=== PATIENT | female | born 1975 | race Caucasian/White ===

== ENCOUNTER 2024-06-26 09:37 | Outpatient (AMB) | payer OTHER, SELFPAY ==
[2024-06-26 09:44] VITALS: BP 110/62; PULSE 71; O2SAT 97; BMI 30.9
--- NOTE | 2024-06-26 09:44 | MHC.OFFVIS ---
Vital Signs 06/26/24 09:44 Height 5 ft 9 in Weight 209 lb BMI 30.9 BP 110/62 Blood Pressure Location Lt brachial Position Sitting Pulse 71 Pulse Source Pulse Oximeter Pulse Oximetry (%) 97 Oxygen Delivery Method Room Air Intake Visit Reasons: [facility] Intake Note: Patient presents for osteoarthritis all over body, hips, neck, and knees. HPI HPI Arthritis: Details: R hand PIPs were stiff end of summer with swelling noted in March. Hard to take rings off. Taking celebrex 200mg but sometimes misses evening dose half of the time. Tylenol arthritis helps. Whole body stiffness and pain. [facility] Medical History (Updated 06/26/24 @ 10:36 by Wilner Ferguson MD) Anxiety ADD (attention deficit disorder) Osteoarthritis Surgical History (Updated 06/26/24 @ 09:53 by Alycia Rosales CMA) History of cholecystectomy Family History (Updated 06/26/24 @ 09:54 by Alycia Rosales CMA) Father Lung cancer Social History (Updated 06/26/24 @ 09:56 by Alycia Rosales CMA) Alcohol intake: current Alcohol intake frequency: 0-2 drinks per day Alcohol type: wine Patient Tobacco Use Status: Former Tobacco user Years Smoked: 1 Substance Use Type: Marijuana Review of Systems Const All systems reviewed & are unremarkable except as noted in HPI and below Physical Exam Vital Signs: Last Vital Signs Pulse 71 06/26/24 09:44 BP 110/62 06/26/24 09:44 Pulse Ox 97 06/26/24 09:44 Oxygen Delivery Method Room Air 06/26/24 09:44 BMI result Body Mass Index 30.9 Const Other: General: Comfortable CVS: RRR Respiratory: clear to auscultation bilaterally. Good respiratory effort Skin: No lesions seen MSK: Nontender to palpate small joints in hands. No synovitis present. Good range of motion of upper extremities and lower extremities. She has good range of motion of her cervical spine. Limited full lumbar flexion at 1st but with time she is able to flexor spine with full flexion. Assessment & Plan Assessment & Plan (1) Chronic back pain: Comment: With inflammatory features of stiffness due to degenerative joint disease of lumbar spine with paraspinal muscle strain contributing. She has found more relief on Celebrex compared to meloxicam. She also uses baclofen 5 mg q.h.s. with benefit. She had a session with PT but it was not effective. I will order physical therapy at [facility]. She developed a recent episode of hand stiffness and swelling. Swelling is intermittent. No synovitis on exam. I will workup for inflammatory arthritis with x-rays and labs [facility] she has had workup for axial inflammatory arthritis with workup revealing positive HLA B27 antibody, no x-ray imaging findings of axial inflammatory arthritis with normal inflammatory markers. Medical records reviewed from [facility]. Code(s): M54.9 - Dorsalgia, unspecified; G89.29 - Other chronic pain Category: Medical Qualifiers: Back pain laterality: unspecified Back pain location: low back pain Sciatica presence: without sciatica Qualified Code(s): M54.50 - Low back pain, unspecified; G89.29 - Other chronic pain Plan: Physical therapy ordered MRI pelvis without contrast ordered to evaluate for inflammatory sacroiliitis Continue Celebrex 200 mg twice a day Labs for drug monitoring chronic NSAID ordered and for workup for inflammatory arthritis Continue baclofen 5 mg q.h.s. p.r.n. 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 (nsaid): Code(s): Z79.1 - extermination supervisor (current) use of non-steroidal anti-inflammatories (NSAID) Category: Medical Plan: See above (3) Hand pain: Code(s): M79.643 - Pain in unspecified hand Category: Medical Qualifiers: Laterality: bilateral Qualified Code(s): M79.641 - Pain in right hand; M79.642 - Pain in left hand Plan: See above (4) Lumbar spondylosis: Code(s): M47.816 - Spondylosis without myelopathy or radiculopathy, lumbar region Category: Medical Plan: See above (5) Strain of lumbar paraspinal muscle: Code(s): S39.012A - Strain of muscle, fascia and tendon of lower back, initial encounter Category: Medical Qualifiers: Encounter type: subsequent encounter Qualified Code(s): S39.012D - Strain of muscle, fascia and tendon of lower back, subsequent encounter Plan: See above Orders: Orders XR hand LT min 3V Today M79.643 - Pain in unspecified hand Aspartate Amino Transferase Today Z79.60 - [facility] (current) use of unspecified immunomodulators and immunosuppressants Creatinine Today Z79.60 - extermination supervisor (current) use of unspecified immunomodulators and immunosuppressants C Reactive Protein Today M79.643 - Pain in unspecified hand Erythrocyte Sedimentation Rate Today M79.643 - Pain in unspecified hand Cyclic Citrullinated Peptide Today M79.643 - Pain in unspecified hand MR pelvis wo con Today G89.29 - Other chronic pain, M54.50 - Low back pain, unspecified XR cervical spine 3V Today G89.29 - Other chronic pain, M54.9 - Dorsalgia, unspecified, M79.643 - Pain in unspecified hand, Z79.1 - extermination supervisor (current) use of non-steroidal anti-inflammatories (NSAID) XR hand RT min 3V Today M79.643 - Pain in unspecified hand Alanine Aminotransferase Today Z79.60 - extermination supervisor (current) use of unspecified immunomodulators and immunosuppressants Rheumatoid Factor Today M79.643 - Pain in unspecified hand Referrals Physical Medicine and Rehabilitation Referral M47.816 - Spondylosis without myelopathy or radiculopathy, lumbar region, S39.012A - Strain of muscle, fascia and tendon of lower back, initial encounter Medications: New baclofen 5 mg PO DAILY 30 tabs 1RF Coding Level of Care Code Est Pt Level 4 (81141) Complex EM visit Add On G2211 Diagnoses Chronic low back pain without sciatica, unspecified back pain laterality M54.50; G89.29 Back pain laterality: unspecified Back pain location: low back pain Sciatica presence: without sciatica [facility] (current) use of non-steroidal anti-inflammatories (nsaid) Z79.1 Pain in both hands M79.641; M79.642 Laterality: bilateral Lumbar spondylosis M47.816 Strain of lumbar paraspinous muscle, subsequent encounter S39.012D Encounter type: subsequent encounter
== END 2024-06-26 10:30 | disposition home or self-care (01) ==
PROVIDERS: PCP Physician Assistant Medical; Visit Provider Internal Medicine Rheumatology
DX: M54.50 Low back pain, unspecified (principal); G89.29 Other chronic pain; Z79.1 Long term (current) use of non-steroidal anti-inflammatories (NSAID); M79.641 Pain in right hand; M79.642 Pain in left hand; M47.816 Spondylosis without myelopathy or radiculopathy, lumbar region; S39.012D Strain of muscle, fascia and tendon of lower back, subsequent encounter
CPT/HCPCS: 99214

== ENCOUNTER 2024-09-03 11:21 | Outpatient (REF) | payer OTHER, SELFPAY ==
[2024-09-03 12:37] LABS: Alanine Aminotransferase 20 U/L (0-31); Aspartate Amino Transferase 23 U/L (5-31); C Reactive Protein < 0.10 mg/dL (< or = 0.50); Estimated Glomerular Filt Rate > 60
[2024-09-03 12:53] LABS: Rheumatoid Factor < 13.0 IU/mL (<15.0)
[2024-09-03 12:57] LABS: Erythrocyte Sedimentation Rate 1 MM/HR (0-20)
[2024-09-08 19:19] LABS: Cyclic Citrullinated Peptide <16 UNITS
== END 2024-09-03 11:22 | disposition home or self-care (01) ==
LOC: HO.LAB 11:21
PROVIDERS: PCP Physician Assistant Medical; Visit Provider Internal Medicine Rheumatology
DX: M79.643 Pain in unspecified hand (principal); Z79.60 Long term (current) use of unspecified immunomodulators and immunosuppressants
CPT/HCPCS: 36415; 82565; 84450; 84460; 85652; 86140; 86200; 86431

== ENCOUNTER 2024-09-08 10:48 | Outpatient (REF) | payer OTHER, SELFPAY ==
--- NOTE | ~2024-09-08 | XR_ITS ---
CLINICAL HISTORY: M79.643 - Pain in unspecified hand 3 view left hand Comparison: None Findings: No fractures or dislocations. There are minimal osteophytes. Preserved joint spaces No erosions. No radiopaque foreign body. IMPRESSION: 1. No acute findings This document has been electronically signed by: Doroteo Mayo MD on 09/09/2024 08:55:33
--- NOTE | ~2024-09-08 | XR_ITS ---
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 4 views cervical spine Comparison: None Findings: There are no acute fractures. There is disc space narrowing at C5-C6 and mild disc space narrowing at C6-C7. There osteophytes most significant at C5-C6 with smaller osteophytes at C6-C7. There is 2 mm posterior listhesis C5 on C6. No soft tissue lesions There is slight kyphosis at C5-C6 secondary to the degenerative changes. IMPRESSION: Multilevel spondylosis most significant at C5-C6 and C6-C7 as above This document has been electronically signed by: Doroteo Mayo MD on 09/09/2024 09:03:29
--- NOTE | ~2024-09-08 | XR_ITS ---
CLINICAL HISTORY: M79.643 - Pain in unspecified hand 3 view right hand Comparison: None Findings: No fractures or dislocations. No significant loss of joint space. No erosions. No radiopaque foreign body. There are small osteophytes. IMPRESSION: Mild osteoarthrosis This document has been electronically signed by: Doroteo Mayo MD on 09/09/2024 08:55:27
== END 2024-09-08 10:49 | disposition home or self-care (01) ==
LOC: HO.XRAY 10:48
PROVIDERS: PCP Physician Assistant Medical; Visit Provider Internal Medicine Rheumatology
DX: M54.9 Dorsalgia, unspecified (principal); G89.29 Other chronic pain; M79.643 Pain in unspecified hand; Z79.1 Long term (current) use of non-steroidal anti-inflammatories (NSAID)
CPT/HCPCS: 72040; 73130

== ENCOUNTER → 2024-09-08 10:52 | Outpatient (BNV) | payer OTHER, SELFPAY | PROVIDERS: PCP Physician Assistant Medical; Visit Provider Radiology Diagnostic Radiology | DX: M79.641 Pain in right hand (principal); M79.642 Pain in left hand | CPT/HCPCS: 72040; 73130 ==

== ENCOUNTER 2024-09-25 09:48 | Outpatient (REF) | payer OTHER, SELFPAY ==
[2024-09-25 17:33] LABS: MANUAL DIFF FLAG NO
[2024-09-25 18:03] LABS: Basophils Percent Auto 0.8 % (0-2); Eosinophils Absolute Auto 0.1 X10*3/uL (0.0-0.4); Eosinophils Percent Auto 1.2 % (0-4); Hemoglobin 12.5 g/dl (12.0-16.0); Imm Gran Abs Auto 0.03 X10*3/uL (0.00-0.03); Imm Gran Pct Auto 0.6 % (0.0-0.4); Lymphocytes Absolute Auto 1.6 X10*3/uL (1.2-4.9); Lymphocytes Percent Auto 33.3 % (20-40); Mean Corpuscular HGB Conc 32.1 g/dl (31.0-35.0); Mean Corpuscular Hemoglobin 31.9 pg (27.0-33.0); Mean Corpuscular Volume 99.5 fL (80.0-98.0); Mean Platelet Volume 9.4 fL (9.4-12.3); Monocytes Absolute Auto 0.3 X10*3/uL (0.1-1.2); Neutrophils Absolute Auto 2.8 x10*3/uL (2.0-8.3); Neutrophils Percent Auto 57.1 % (45-73); Platelet Count 274 X10*3/uL (160-400); Red Blood Count 3.92 X10*6/uL (4.20-5.50); Red Cell Distribution Width 13.1 % (11.0-16.0); White Blood Count 4.8 X10*3/uL (4.8-10.8)
[2024-09-25 18:52] LABS: Erythrocyte Sedimentation Rate 3 MM/HR (0-20)
== END 2024-09-25 09:49 | disposition home or self-care (01) ==
LOC: HO.HKASLDS 09:48
PROVIDERS: PCP Physician Assistant Medical; Visit Provider Internal Medicine Rheumatology
DX: Z79.899 Other long term (current) drug therapy (principal); Z79.1 Long term (current) use of non-steroidal anti-inflammatories (NSAID)
CPT/HCPCS: 36415; 85025; 85652; 86140

== ENCOUNTER 2024-09-25 09:48 | Outpatient (AMB) | payer OTHER, SELFPAY ==
--- NOTE | 2024-09-25 09:52 | MHC.OFFVIS ---
Vital Signs 09/25/24 09:53 Height 5 ft 9 in Weight 206 lb 12.697 oz BMI 30.5 BP 130/80 Blood Pressure Location Rt brachial Position Sitting Pulse 66 Pulse Source Pulse Oximeter Pulse Oximetry (%) 98 Oxygen Delivery Method Room Air Intake Visit Reasons: 3 nts f/u appt Intake Note: Patient presents for osteoarthritis. Allergies codiene Allergy (Intermediate, Uncoded 09/25/24 07:59) diziness HPI HPI 3 nts f/u appt: Details: Morning stiffness is all day. She continues to have pain in her lower back localized to right buttocks region. She reports with her research the pain is localized to the piriformis. She feels that the piriformis is a rock. Constant pain in that region worse with activity and relieved with rest. PT is helping. PT is working on core strengthening and improving shoulder range of motion. Pain in her hands improved. Celebrex is helping to reduce her pain. PCP is prescribing Celebrex. She continues to have hypermobility with hyperextension of her fingers. She denies new joint swelling and dactylitis. [facility] Medical History Anxiety ADD (attention deficit disorder) Osteoarthritis Surgical History History of cholecystectomy Family History Father Lung cancer Social History Alcohol intake: current Alcohol intake frequency: 0-2 drinks per day Alcohol type: wine Patient Tobacco Use Status: Former Tobacco user Years Smoked: 1 Substance Use Type: Marijuana Review of Systems Const All systems reviewed & are unremarkable except as noted in HPI and below Physical Exam Vital Signs: Last Vital Signs Pulse 66 09/25/24 09:53 BP 130/80 09/25/24 09:53 Pulse Ox 98 09/25/24 09:53 Oxygen Delivery Method Room Air 09/25/24 09:53 BMI result Body Mass Index 30.5 Const Other: General: Comfortable CVS: RRR Respiratory: clear to auscultation bilaterally. Good respiratory effort Skin: No lesions seen MSK: No tenderness of joints in her hands. No synovitis present. Normal range of motion of upper extremities and lower extremities. She has normal range of motion of her cervical spine. Tender right SI joint. No spinous process tenderness. Positive WALLY right side. Normal lumbar flexion. Results Reviewed Results Reviewed: Date of Service: 09/08/24 Procedure(s): XR cervical spine 3V 4 views cervical spine Comparison: None Findings: There are no acute fractures. There is disc space narrowing at C5-C6 and mild disc space narrowing at C6-C7. There osteophytes most significant at C5-C6 with smaller osteophytes at C6-C7. There is 2 mm posterior listhesis C5 on C6. No soft tissue lesions There is slight kyphosis at C5-C6 secondary to the degenerative changes. IMPRESSION: Multilevel spondylosis most significant at C5-C6 and C6-C7 as above Medical records from [facility] reviewed. 10/2023 x-ray of SI joints normal. C-spine x-ray reveals multilevel endplate changes, osteophytosis and facet degenerative changes noted throughout the visualized spine. The levels that were affected worse were C5-C6. Lumbar spine reveals levocurvature of the lumbar spine, multilevel degenerative disc disease noted worse at L5-S1. Lateral and anterior osteophytosis and facet degenerative changes are identified. Bilateral hip x-ray reveals moderate osteoarthritis of bilateral hips. Assessment & Plan Assessment & Plan (1) Chronic back pain: Comment: Due to combination of inflammatory back pain with all day stiffness (HLA B27 positive with normal inflammatory markers), degenerative back pain (radiographic findings of lumbar spondylosis 10/2023, pain relief with rest) and myofascial strain from paraspinal muscles contributing. She has had improvement with PT, Celebrex and baclofen 5 mg q.h.s. Since last visit she has had intermittent hand pain and swelling. X-rays of her hands revealed mild osteoarthritis. She also has cervical spondylosis on imaging. Labs from 08/2023 reveals normal inflammatory markers, kidney function and liver function. Rheumatology history: [facility] she has had workup for axial inflammatory arthritis with workup revealing positive HLA B27 antibody, no x-ray imaging findings of axial inflammatory arthritis with normal inflammatory markers. She has had greater response to Celebrex compared to meloxicam. Improvement with physical therapy and baclofen 5 mg q.h.s.. Code(s): M54.9 - Dorsalgia, unspecified; G89.29 - Other chronic pain Category: Medical Qualifiers: Back pain laterality: unspecified Back pain location: low back pain Sciatica presence: without sciatica Qualified Code(s): M54.50 - Low back pain, unspecified; G89.29 - Other chronic pain Plan: Continue physical therapy. I have added on physical therapy for C-spine strengthening OT for hand strengthening MRI pelvis without contrast ordered to evaluate for inflammatory sacroiliitis, versus muscle or tendon pathology such as tear as it will bladder changer with addition of biologic TNF inhibitor if she has confirmed inflammatory sacroiliitis versus orthopedic surgery evaluation if there is significant muscle or tendon pathology. MRI was denied - I am enquiring why it was denied for appeal. Continue Celebrex 200 mg twice a day prescribed by PCP Inflammatory markers ordered for disease workup and CBC ordered for drug monitoring. Continue baclofen 5 mg q.h.s. p.r.n. Return to clinic in 3 months (2) detention (current) use of non-steroidal anti-inflammatories (nsaid): Code(s): Z79.1 - detention (current) use of non-steroidal anti-inflammatories (NSAID) Category: Medical Plan: See above (3) Cervical spondylosis: Code(s): M47.812 - Spondylosis without myelopathy or radiculopathy, cervical region Category: Medical Plan: See above (4) Osteoarthritis, hand: Code(s): M19.049 - Primary osteoarthritis, unspecified hand Category: Medical Qualifiers: Laterality: bilateral Osteoarthritis type: primary Qualified Code(s): M19.041 - Primary osteoarthritis, right hand; M19.042 - Primary osteoarthritis, left hand Plan: See above (5) Hypermobility arthralgia: Comment: In hands leading to hyperextension of fingers. She will benefit from OT Code(s): M25.50 - Pain in unspecified joint Category: Medical Plan: OT ordered (6) Hand pain: Code(s): M79.643 - Pain in unspecified hand Category: Medical Qualifiers: Laterality: bilateral Qualified Code(s): M79.641 - Pain in right hand; M79.642 - Pain in left hand Plan: See above (7) Lumbar spondylosis: Code(s): M47.816 - Spondylosis without myelopathy or radiculopathy, lumbar region Category: Medical Plan: See above (8) Strain of lumbar paraspinal muscle: Code(s): S39.012A - Strain of muscle, fascia and tendon of lower back, initial encounter Category: Medical Qualifiers: Encounter type: subsequent encounter Qualified Code(s): S39.012D - Strain of muscle, fascia and tendon of lower back, subsequent encounter Plan: See above Orders: Orders C Reactive Protein Today Z79.899 - Other shelter (current) drug therapy Erythrocyte Sedimentation Rate Today Z79.899 - Other intermediate accountant (current) drug therapy PT Evaluation and Treatment Today M47.812 - Spondylosis without myelopathy or radiculopathy, cervical region Complete Blood Count Auto Diff Today Z79.1 - long term acute care registered nurse (current) use of non-steroidal anti-inflammatories (NSAID) OT Evaluation and Treatment Today M19.049 - Primary osteoarthritis, unspecified hand, M25.50 - Pain in unspecified joint Coding Level of Care Code Est Pt Level 4 (14247) Complex EM visit Add On G2211 Diagnoses Chronic low back pain without sciatica, unspecified back pain laterality M54.50; G89.29 Back pain laterality: unspecified Back pain location: low back pain Sciatica presence: without sciatica detention (current) use of non-steroidal anti-inflammatories (nsaid) Z79.1 Cervical spondylosis M47.812 Primary osteoarthritis of both hands M19.041; M19.042 Laterality: bilateral Osteoarthritis type: primary Hypermobility arthralgia M25.50 Pain in both hands M79.641; M79.642 Laterality: bilateral Lumbar spondylosis M47.816 Strain of lumbar paraspinous muscle, subsequent encounter S39.012D Encounter type: subsequent encounter
[2024-09-25 09:53] VITALS: BP 130/80; PULSE 66; O2SAT 98; BMI 30.5
== END 2024-09-25 10:28 | disposition home or self-care (01) ==
LOC: HO.RHES 09:48
PROVIDERS: PCP Physician Assistant Medical; Visit Provider Internal Medicine Rheumatology
DX: M54.50 Low back pain, unspecified (principal); G89.29 Other chronic pain; Z79.1 Long term (current) use of non-steroidal anti-inflammatories (NSAID); M47.812 Spondylosis without myelopathy or radiculopathy, cervical region; M19.041 Primary osteoarthritis, right hand; M19.042 Primary osteoarthritis, left hand; M25.50 Pain in unspecified joint; M79.641 Pain in right hand; M79.642 Pain in left hand; M47.816 Spondylosis without myelopathy or radiculopathy, lumbar region; S39.012D Strain of muscle, fascia and tendon of lower back, subsequent encounter
CPT/HCPCS: 99214

== ENCOUNTER 2024-10-10 08:02 | Outpatient (REF) | payer OTHER, SELFPAY ==
--- NOTE | ~2024-10-10 | MR_ITS ---
EXAMINATION: MR PELVIS WITH CONTRAST CLINICAL INFORMATION: HLA-B27 positive. Concerning sacroiliitis. COMPARISON: None available. TECHNIQUE: Multiplanar, multisequence MRI pelvis. No IV contrast. FINDINGS: Bone marrow inhomogeneity, bony pelvis and proximal appendicular skeleton. No bone marrow STIR signal abnormality in the sacroiliac joints or elsewhere. S-shaped curvature of the lower lumbar spine. Trace of fluid in the coxofemoral joints bilaterally. Nonspecific prominent inguinal lymph nodes. Multifocal subserosal heterogeneous hyperintense T2 nodular lesions in the uterus, the largest measures 2.7 cm. There is a 1.6 cm dominant follicle in the right ovary. No free fluid in the cul-de-sac. Flow-void signal within the main vessels is normal. MR/MR pelvis wo con IMPRESSION: No sacroiliitis. Abnormal bone marrow. Consider osteopenia versus osteoporosis versus calcium metabolic disorders. Uterine fibroids. Electronically signed by: Priyank Velasquez MD 10/10/2024 09:45 AM EDT
== END 2024-10-10 08:03 | disposition home or self-care (01) ==
LOC: HO.MRI 08:02
PROVIDERS: PCP Physician Assistant Medical; Visit Provider Internal Medicine Rheumatology
DX: M54.9 Dorsalgia, unspecified (principal); M47.816 Spondylosis without myelopathy or radiculopathy, lumbar region
CPT/HCPCS: 72195

== ENCOUNTER → 2024-10-10 08:02 | Outpatient (BNV) | payer OTHER, SELFPAY | PROVIDERS: PCP Physician Assistant Medical; Visit Provider Radiology Diagnostic Radiology | DX: B27.00 Gammaherpesviral mononucleosis without complication (principal) | CPT/HCPCS: 72195 ==

== ENCOUNTER 2024-10-17 10:08 | Outpatient (RCR) | payer OTHER, SELFPAY ==
--- NOTE | 2024-09-03 11:21 | MHC.PT.EP ---
[facility] [place] Office [place] Office [place] Office [address] Stefani Garcia [address] [phone] F: [phone] F: [phone] F: [phone] F: [phone] Physical Therapy Plan of Care Date of Evaluation: 09/03/24 Date of Surgery: Diagnosis: strain of muscle, fascia, and tendon of low back spondylosis without myelopathy or radiculopathy, lumbar region Assessment: 48 y/o female referred to PT with LBP. S/s consistent with referring dx resulting in pain and difficulty with prolonged standing, walking, lifting, reaching, sleeping, and sometimes sitting. Examination shows limited lumbar AROM, limited hip rotation ROM, decreased core/ hip strength, scoliosis, decreased R QL length, breath-holding tendencies, and impaired gait pattern. 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 Manual therapy to restore motion and function. Therapeutic exercise to improve strength and flexibility. Neuromuscular re-education for posture and balance. Therapeutic activities to return to functional activities of daily living. Electronically signed by: Michelle Harrell PT Please sign and return to therapist. Thank you for your referral.
--- NOTE | 2024-10-17 10:51 | MHC.PT.DC ---
[facility] [place] Office [place] Office [place] Office [address] Stefani Garcia [address] [phone] F: [phone] F: [phone] F: [phone] F: [phone] Physical Therapy Discharge Report Diagnosis: strain of muscle, fascia, and tendon of low back spondylosis without myelopathy or radiculopathy, lumbar region Date of Surgery: Date of Evaluation: 09/03/24 Date of Discharge: 10/17/24 Treatments to Date: 11 Cancellations to Date: 0 No Shows to Date: 0 Discharge Status: Achieved Goals Improved Function Independent with HEP Discharge Summary: Overall pt demonstrates improved upright posture, improved gait pattern, less pain in low back, and I with HEP. Sleep is still disturbed but reports no longer d/t LBP but d/t cervical pain and needing to use bathroom. Reviewed exercises and no further questions at this time. She will return to PT for cervical pain in a few weeks Electronically signed by: Michelle Harrell PT Please sign and return to therapist. Thank you for your referral.
== END 2024-10-17 10:52 | disposition home or self-care (01) ==
LOC: HO.PT 10:08
PROVIDERS: PCP Physician Assistant Medical; Visit Provider Internal Medicine Rheumatology
DX: S39.012D Strain of muscle, fascia and tendon of lower back, subsequent encounter (principal); M47.816 Spondylosis without myelopathy or radiculopathy, lumbar region
CPT/HCPCS: 97110; 97112; 97140; 97162

== ENCOUNTER 2024-12-04 09:57 | Outpatient (RCR) | payer OTHER, SELFPAY ==
--- NOTE | 2024-11-07 13:04 | MHC.PT.EP ---
[facility] [place] Office [place] Office [place] Office [address] Stefani Garcia [address] [phone] F: [phone] F: [phone] F: [phone] F: [phone] Physical Therapy Plan of Care Date of Evaluation: 11/07/24 Date of Surgery: Diagnosis: cervical spondylosis (MD Dx) RS X-ray imaging; disc space narrowing at C5-C6 and C6-C7. Osteophytes most significant at C5-C6 with smaller osteophytes at C6-C7. 2 mm posterior listhesis C5 on C6. There is slight kyphosis at C5-C6 secondary to the degenerative changes. Assessment: Venessa is a pleasant, motivated 48 y.o. female who is referred to PT by Dr. Josee Ferguson MD with Dx of cervical spondylosis. Her X-ray imaging reveals; disc space narrowing at C5-C6 and C6-C7. Osteophytes most significant at C5-C6 with smaller osteophytes at C6-C7, 2 mm posterior listhesis C5 on C6. There is slight kyphosis at C5-C6 secondary to the degenerative changes. Patient impairments include poor posture. limited cervical and shoulder ROM, weakness in middle and lower traps, history of scoliosis. Patient current functional limitations are unable to look down, reading, sleeping, driving, overhead reaching, reaching behind back, cleaning. Patient will benefit from skilled PT to address aforementioned impairments and functional limitations to meet established goals. Frequency and Duration: The patient will be seen 1-2x/week for 4 weeks Short Term Goals: 2 weeks Patient demonstrates consistency and independence with HEP to self manage symptoms. Fdc Goals: 4 weeks Venessa presents with increased cervical spine rotation 60 degrees bilaterally to improve looking over shoulders when driving. Venessa presents with increased bilateral shoulder lower trap strength 3+/5 to increased time with reading and computer work. Treatment Plan: Modalities to reduce pain, spasms and effusion. Manual therapy to restore motion and function. Therapeutic exercise to improve strength and flexibility. Neuromuscular re-education for posture and balance. Therapeutic activities to return to functional activities of daily living. Electronically signed by: Gia Jalloh, PT, DPT Please sign and return to therapist. Thank you for your referral.
--- NOTE | 2025-01-26 10:41 | MHC.PT.DC ---
[facility] [place] Office [place] Office [place] Office [address] Stefani Garcia [address] [phone] F: [phone] F: [phone] F: [phone] F: [phone] Physical Therapy Discharge Report Diagnosis: cervical spondylosis ( Dx) RS X-ray imaging; disc space narrowing at C5-C6 and C6-C7. Osteophytes most significant at C5-C6 with smaller osteophytes at C6-C7. 2 mm posterior listhesis C5 on C6. There is slight kyphosis at C5-C6 secondary to the degenerative changes. Date of Surgery: Date of Evaluation: 11/07/24 Date of Discharge: 01/26/25 Treatments to Date: 9 Cancellations to Date: 0 No Shows to Date: 0 Discharge Status: Improved Function Independent with HEP Patient Elected to Stop Discharge Summary: Venessa reported symptom relief and demonstrated improved posture with PT interventions (manual therapy, cervical traction, modalities and therapeutic exercise and activities.) She was last seen for PT on 12/04/24 and the assessment reads, Venessa is presenting with forward head/neck posture in sitting, improves and she does self correct in standing. Continued with exercises to strengthen mid back/scapular stabilizers. She reports continued relief from familiar sxs and radicular sxs utilizing mechanical cervical traction. She did not schedule and more FUP visits after this session and is therefore discharged from PT. Electronically signed by: Gia Jalloh, PT, DPT Please sign and return to therapist. Thank you for your referral.
== END 2025-01-26 10:42 | disposition home or self-care (01) ==
LOC: HO.PT 09:57
PROVIDERS: PCP Physician Assistant Medical; Visit Provider Internal Medicine Rheumatology
DX: M47.812 Spondylosis without myelopathy or radiculopathy, cervical region (principal)
CPT/HCPCS: 97012; 97110; 97140; 97161

== ENCOUNTER 2024-12-30 09:03 | Outpatient (AMB) | payer OTHER, SELFPAY ==
--- NOTE | 2024-12-30 09:05 | A.OFFVIS_ITS ---
Vital Signs 12/30/24 09:08 Height 5 ft 9 in Weight 208 lb BMI 30.7 BP 130/80 Blood Pressure Location Rt brachial Position Sitting Pulse 73 Pulse Source Pulse Oximeter Pulse Oximetry (%) 98 Oxygen Delivery Method Room Air Intake Visit Reasons: 3 months Intake Note: Patient presents for osteoarthritis. Accompanied by: Self / Same As Patient Allergies codiene Allergy (Intermediate, Uncoded 09/25/24 07:59) diziness HPI HPI 3 months: Details: Exercises from PT helped neck pain. New job is sedentary. MS less than an hour (improved). Nocturnal neck pain. She no longer wakes up with lower back pain. Using TENs unit. No joint swelling. Improved with job change and verticle mouse. Cramping in hands is reduced. She saw gynecology due to MRI revealing uterine fibroids. Gynecology is not concerned about incidental finding and there is no further workup recommended for patient. [facility] Medical History Anxiety ADD (attention deficit disorder) Osteoarthritis Surgical History History of cholecystectomy Family History Father Lung cancer Social History Alcohol intake: current Alcohol intake frequency: 0-2 drinks per day Alcohol type: wine Patient Tobacco Use Status: Former Tobacco user Years Smoked: 1 Substance Use Type: Marijuana Physical Exam Vital Signs: Last Vital Signs Pulse 73 12/30/24 09:08 BP 130/80 12/30/24 09:08 Pulse Ox 98 12/30/24 09:08 Oxygen Delivery Method Room Air 12/30/24 09:08 BMI result Body Mass Index 30.7 Const Other: General: Comfortable CVS: RRR Respiratory: clear to auscultation bilaterally. Good respiratory effort Skin: No lesions seen MSK: No tenderness of joints in her hands. No synovitis present. Normal range of motion of upper extremities and lower extremities. She has normal range of motion of her cervical spine. Tender right SI joint. No spinous process tenderness. Negative WALLY. Normal lumbar flexion. Results Reviewed Results Reviewed: EXAMINATION: MR PELVIS WITH CONTRAST CLINICAL INFORMATION: HLA-B27 positive. Concerning sacroiliitis. COMPARISON: None available. TECHNIQUE: Multiplanar, multisequence MRI pelvis. No IV contrast. FINDINGS: Bone marrow inhomogeneity, bony pelvis and proximal appendicular skeleton. No bone marrow STIR signal abnormality in the sacroiliac joints or elsewhere. S-shaped curvature of the lower lumbar spine. Trace of fluid in the coxofemoral joints bilaterally. Nonspecific prominent inguinal lymph nodes. Multifocal subserosal heterogeneous hyperintense T2 nodular lesions in the uterus, the largest measures 2.7 cm. There is a 1.6 cm dominant follicle in the right ovary. No free fluid in the cul-de-sac. Flow-void signal within the main vessels is normal. MR/MR pelvis wo con IMPRESSION: No sacroiliitis. Abnormal bone marrow. Consider osteopenia versus osteoporosis versus calcium metabolic disorders. Uterine fibroids. Electronically signed by: Priyank Velasquez MD 10/10/2024 09:45 AM Assessment & Plan Assessment & Plan (1) Chronic back pain: Comment: Due to combination of non radiographic ankylosing spondylitis (HLA B27 positive with normal inflammatory markers, x-ray SI joint/L-spine/MRI SI joints unremarkable for radiographic findings of axial inflammatory arthritis, initially presenting with all day morning stiffness, response to celecoxib), degenerative back pain (radiographic findings of lumbar spondylosis 10/2023, pain relief with rest) and myofascial strain from paraspinal muscles. She has had improvement with PT and Celebrex with reducing stiffness from all day to 1 hour. She is unsure if baclofen has been helpful. She has significant pain from cervical spondyloarthritis, especially with sedentary new job and has had benefit from PT. Rheumatology history: [facility] has had workup for axial inflammatory arthritis with workup revealing positive HLA B27 antibody, no x-ray imaging findings of axial inflammatory arthritis with normal inflammatory markers. She had greater response to Celebrex compared to meloxicam. Improvement with physical therapy and baclofen 5 mg q.h.s. she has had chronic R SI joint pain after removal of tissue from localized area to SI joint years ago. MRI pelvis 10/10/2024 SI joints normal. Code(s): M54.9 - Dorsalgia, unspecified; G89.29 - Other chronic pain Category: Medical Qualifiers: Back pain laterality: unspecified Back pain location: low back pain Sciatica presence: without sciatica Qualified Code(s): M54.50 - Low back pain, unspecified; G89.29 - Other chronic pain Plan: Continue physical therapy for C-spine strengthening Continue Celebrex 200 mg twice a day prescribed by PCP. She has kidney and liver function checked twice a year for drug monitoring on chronic NSAID Inflammatory markers ordered for disease monitoring Increase baclofen to 10 mg q.h.s. p.r.n. neck pain is uncontrolled Information printed for patient on non radiographic ankylosing spondylitis Return to clinic in 3 months (2) manager intermediate (current) use of non-steroidal anti-inflammatories (nsaid): Code(s): Z79.1 - longterm (current) use of non-steroidal anti-inflammatories (NSAID) Category: Medical Plan: See above (3) Cervical spondylosis: Code(s): M47.812 - Spondylosis without myelopathy or radiculopathy, cervical region Category: Medical Plan: See above (4) Osteoarthritis, hand: Comment: Pain is controlled. Code(s): M19.049 - Primary osteoarthritis, unspecified hand Category: Medical Qualifiers: Laterality: bilateral Osteoarthritis type: primary Qualified Code(s): M19.041 - Primary osteoarthritis, right hand; M19.042 - Primary osteoarthritis, left hand Plan: Monitor clinically (5) Hypermobility arthralgia: Comment: In hands leading to hyperextension of fingers. Code(s): M25.50 - Pain in unspecified joint Category: Medical Plan: Monitor clinically (6) Lumbar spondylosis: Code(s): M47.816 - Spondylosis without myelopathy or radiculopathy, lumbar region Category: Medical Plan: See above (7) Strain of lumbar paraspinal muscle: Code(s): S39.012A - Strain of muscle, fascia and tendon of lower back, initial encounter Category: Medical Qualifiers: Encounter type: subsequent encounter Qualified Code(s): S39.012D - Strain of muscle, fascia and tendon of lower back, subsequent encounter Plan: See above (8) Non-radiographic axial spondyloarthritis: Code(s): M45.A0 - Non-radiographic axial spondyloarthritis of unspecified sites in spine Category: Medical Plan: See above Orders: Orders Erythrocyte Sedimentation Rate Today Z79.899 - Other middle or intermediate school principal (current) drug therapy C Reactive Protein Today Z79.899 - Other care home (current) drug therapy Coding Level of Care Code Est Pt Level 4 (22936) Complex EM visit Add On G2211 Diagnoses Chronic low back pain without sciatica, unspecified back pain laterality M54.50; G89.29 Back pain laterality: unspecified Back pain location: low back pain Sciatica presence: without sciatica longterm (current) use of non-steroidal anti-inflammatories (nsaid) Z79.1 Cervical spondylosis M47.812 Primary osteoarthritis of both hands M19.041; M19.042 Laterality: bilateral Osteoarthritis type: primary Hypermobility arthralgia M25.50 Lumbar spondylosis M47.816 Strain of lumbar paraspinous muscle, subsequent encounter S39.012D Encounter type: subsequent encounter Non-radiographic axial spondyloarthritis M45.A0
[2024-12-30 09:08] VITALS: BP 130/80; PULSE 73; O2SAT 98; BMI 30.7
== END 2024-12-30 09:46 | disposition home or self-care (01) ==
LOC: HO.RHES 09:04
PROVIDERS: PCP Physician Assistant Medical; Visit Provider Internal Medicine Rheumatology
DX: M54.50 Low back pain, unspecified (principal); G89.29 Other chronic pain; Z79.1 Long term (current) use of non-steroidal anti-inflammatories (NSAID); M47.812 Spondylosis without myelopathy or radiculopathy, cervical region; M19.041 Primary osteoarthritis, right hand; M19.042 Primary osteoarthritis, left hand; M25.50 Pain in unspecified joint; M47.816 Spondylosis without myelopathy or radiculopathy, lumbar region; S39.012D Strain of muscle, fascia and tendon of lower back, subsequent encounter; M45.A0 Non-radiographic axial spondyloarthritis of unspecified sites in spine
CPT/HCPCS: 99214; G2211

== ENCOUNTER 2025-04-07 08:04 | Outpatient (REF) | payer OTHER, SELFPAY ==
[2025-04-07 14:03] LABS: Alanine Aminotransferase 17 U/L (0-31); Aspartate Amino Transferase 23 U/L (5-31); Estimated Glomerular Filt Rate > 60
== END 2025-04-07 08:05 | disposition home or self-care (01) ==
LOC: HO.HKASLDS 08:04
PROVIDERS: PCP Physician Assistant Medical; Visit Provider Internal Medicine Rheumatology
DX: Z51.81 Encounter for therapeutic drug level monitoring (principal); M19.042 Primary osteoarthritis, left hand; M19.041 Primary osteoarthritis, right hand; S39.012D Strain of muscle, fascia and tendon of lower back, subsequent encounter; M47.812 Spondylosis without myelopathy or radiculopathy, cervical region; M47.816 Spondylosis without myelopathy or radiculopathy, lumbar region; M45.A0 Non-radiographic axial spondyloarthritis of unspecified sites in spine; M54.9 Dorsalgia, unspecified; G89.29 Other chronic pain; Z79.1 Long term (current) use of non-steroidal anti-inflammatories (NSAID); Z79.899 Other long term (current) drug therapy; X58.XXXD Exposure to other specified factors, subsequent encounter
CPT/HCPCS: 36415; 82565; 84450; 84460; 85652; 86140

== ENCOUNTER 2025-04-07 08:04 | Outpatient (AMB) | payer OTHER, SELFPAY ==
--- NOTE | 2025-04-07 08:06 | MHC.OFFVIS ---
Vital Signs 04/07/25 08:09 Height 5 ft 9 in Weight 213 lb 2.992 oz BMI 31.5 BP 130/90 H Blood Pressure Location Lt brachial Position Sitting Pulse 73 Pulse Source Pulse Oximeter Pulse Oximetry (%) 98 Oxygen Delivery Method Room Air Intake Visit Reasons: 3 Months Intake Note: Patient presents for osteoarthritis. Accompanied by: Self / Same As Patient Allergies twylaienestephania Allergy (Intermediate, Uncoded 09/25/24 07:59) diziness HPI HPI 3 Months: Details: Celebrex BID is helpful. Using heat or ice PRN neck. Had a gap in PT and notices difference in increase neck pain. Uses baclofen 10mg qhs PRN 3-4 times a week. Using hot tub helps. Feels discomfort at the base of her skull contributing to his sensation where she needs to swallow. MS less than an hour. She has noticed knee pain and swelling. Sometimes sleeps with compression sleeve. Denies psoriasis but she has noticed new rash on her left elbow. She has been using Aquaphor with benefit. No bowel issues or bloody stools. [facility] Medical History Anxiety ADD (attention deficit disorder) Osteoarthritis Surgical History History of cholecystectomy Family History Father Lung cancer Social History Alcohol intake: current Alcohol intake frequency: 0-2 drinks per day Alcohol type: wine Patient Tobacco Use Status: Former Tobacco user Years Smoked: 1 Substance Use Type: Marijuana Physical Exam Vital Signs: Last Vital Signs Pulse 73 04/07/25 08:09 BP 130/90 H 04/07/25 08:09 Pulse Ox 98 04/07/25 08:09 Oxygen Delivery Method Room Air 04/07/25 08:09 BMI result Body Mass Index 31.5 Const Other: General: Comfortable CVS: RRR Respiratory: clear to auscultation bilaterally. Good respiratory effort Skin: Small papules left extensor elbow without scale MSK: No tenderness of joints in her hands. No synovitis present. Normal range of motion of upper extremities and lower extremities. She has normal range of motion of her cervical spine. Tender right SI joint. No spinous process tenderness. Negative WALLY. Normal lumbar flexion. Assessment & Plan Assessment & Plan (1) Chronic back pain: Comment: Due to combination of non radiographic ankylosing spondylitis (HLA B27 positive with normal inflammatory markers, x-ray SI joint/L-spine/MRI SI joints unremarkable for radiographic findings of axial inflammatory arthritis, initially presenting with all day morning stiffness, response to celecoxib), degenerative back pain (radiographic findings of lumbar spondylosis 10/2023, pain relief with rest) and myofascial strain from paraspinal muscles. She has had improvement with PT and Celebrex with reducing stiffness from all day to less than 1 hour. Baclofen PRN has been helpful. She has developed new knee pain. Rheumatology history: [facility] she has had workup for axial inflammatory arthritis with workup revealing positive HLA B27 antibody, no x-ray imaging findings of axial inflammatory arthritis with normal inflammatory markers. She had greater response to Celebrex compared to meloxicam. Improvement with physical therapy and baclofen 5 mg q.h.s. she has had chronic R SI joint pain after removal of tissue from localized area to SI joint years ago. MRI pelvis 10/10/2024 SI joints normal. Code(s): M54.9 - Dorsalgia, unspecified; G89.29 - Other chronic pain Category: Medical Qualifiers: Back pain location: low back pain Back pain laterality: unspecified Sciatica presence: without sciatica Qualified Code(s): M54.50 - Low back pain, unspecified; G89.29 - Other chronic pain Plan: Continue physical therapy for C-spine strengthening with myofascial release, TENs unit trial and traction. I have added bilateral knee strengthening to PT order. If knee pain does not improve, we will order x-rays of bilateral knees next visit Continue Celebrex 200 mg twice a day prescribed by PCP. She has kidney and liver function checked twice a year for drug monitoring on chronic NSAID Inflammatory markers ordered for disease monitoring Continue baclofen 10 mg q.h.s. p.r.n. neck pain Return to clinic in 3 months (2) intermediate manager (current) use of non-steroidal anti-inflammatories (nsaid): Code(s): Z79.1 - intermediate manager (current) use of non-steroidal anti-inflammatories (NSAID) Category: Medical Plan: See above (3) Cervical spondylosis: Code(s): M47.812 - Spondylosis without myelopathy or radiculopathy, cervical region Category: Medical Plan: See above (4) Osteoarthritis, hand: Comment: Pain is controlled. Code(s): M19.049 - Primary osteoarthritis, unspecified hand Category: Medical Qualifiers: Osteoarthritis type: primary Laterality: bilateral Qualified Code(s): M19.041 - Primary osteoarthritis, right hand; M19.042 - Primary osteoarthritis, left hand Plan: Monitor clinically (5) Hypermobility arthralgia: Comment: In hands leading to hyperextension of fingers. Code(s): M25.50 - Pain in unspecified joint Category: Medical Plan: Monitor clinically (6) Lumbar spondylosis: Code(s): M47.816 - Spondylosis without myelopathy or radiculopathy, lumbar region Category: Medical Plan: See above (7) Strain of lumbar paraspinal muscle: Code(s): S39.012A - Strain of muscle, fascia and tendon of lower back, initial encounter Category: Medical Qualifiers: Encounter type: subsequent encounter Qualified Code(s): S39.012D - Strain of muscle, fascia and tendon of lower back, subsequent encounter Plan: See above (8) Non-radiographic axial spondyloarthritis: Code(s): M45.A0 - Non-radiographic axial spondyloarthritis of unspecified sites in spine Category: Medical Plan: See above Orders: Orders Aspartate Amino Transferase Today Z79.1 - shelter (current) use of non-steroidal anti-inflammatories (NSAID) Alanine Aminotransferase Today Z79.1 - shelter (current) use of non-steroidal anti-inflammatories (NSAID) Creatinine Today Z79.1 - intermediate manager (current) use of non-steroidal anti-inflammatories (NSAID) Coding Level of Care Code Est Pt Level 4 (96320) Complex EM visit Add On G2211 Diagnoses Chronic low back pain without sciatica, unspecified back pain laterality M54.50; G89.29 Back pain location: low back pain Back pain laterality: unspecified Sciatica presence: without sciatica shelter (current) use of non-steroidal anti-inflammatories (nsaid) Z79.1 Cervical spondylosis M47.812 Primary osteoarthritis of both hands M19.041; M19.042 Osteoarthritis type: primary Laterality: bilateral Hypermobility arthralgia M25.50 Lumbar spondylosis M47.816 Strain of lumbar paraspinous muscle, subsequent encounter S39.012D Encounter type: subsequent encounter Non-radiographic axial spondyloarthritis M45.A0
[2025-04-07 08:09] VITALS: BP 130/90; PULSE 73; O2SAT 98; BMI 31.5
--- OUTSIDE RECORDS SUMMARY | 2025-04-07 08:48 | XMS_ITS | Encounter Summary ---
Author Organization [facility] Address [address] [place] [address] Phone Care Team Providers Care Airport Operations Officer Name Role Phone Jamil Lindsay MD Primary Care Provider [phone] Sol Chapman MD Unavailable [phone] Jamil Lindsay MD Primary Care Provider [phone]- [phone] Encounter Details Date Type Department Care Team (Late st Contact Info) Description 04/27/2021 Ancillary Orders [facility], Ct Scan - [facility] [address] [place] [address] Latoya Goss PA [address] [place] [address] Mass of pelvis Social History Tobacco Use Types Packs/Day Years Used Date Smoking Tobacco: Never Smokeless Tobacco: Never Alcohol Use Standard Drinks/Week Comments Yes 5 (1 standard drink = 0.6 oz pur e alcohol) Comments No Sex and Gender Information Value Date Recorded Sex Assigned at Female 04/29/2019 1:33 PM EDT Legal Sex Female 9:29 PM EDT Gender Identity Female 04/29/2019 1:33 PM EDT Sexual Orientation Straight 09/09/2024 12 :06 AM EST documented as of this encounter Plan of Treatment Not on file documented as of this encounter Visit Diagnoses Diagnosis Mass of pelvis documented in this encounter Care Teams Airport Operations Officer Relationship Specialty Start Date End Date Jamil Lindsay MD [email or web address] PCP - General 07/19/17 04/21/24 Jamil Lindsay MD [address] [place] [address] [email or web address] PCP - General Family Medicine 04/22/24 Sol Chapman MD [address] [place] [address] [email or web address] Primary Oncologist Hematology and Oncology 04/18/23 documented as of this encounter Additional Source Comments The information contained in this document represents components of the legal health record. It is not the complete legal health record.[facility]
--- OUTSIDE RECORDS SUMMARY | 2025-04-07 08:48 | XMS_ITS | Encounter Summary ---
Author Organization [facility] Address [address] [place] [address] Phone Care Team Providers Care Nutrition Professor Name Role Phone Jamil Lindsay MD Primary Care Provider [phone] Sol Chapman MD Unavailable [phone] Jamil Lindsay MD Primary Care Provider [phone]- [phone] Encounter Details Date Type Department Care Team (Late st Contact Info) Description 05/01/2019 Procedure Pass [place] Admitting Dept - Virtual Department [address] [place] [address] Social History Tobacco Use Types Packs/Day Years Used Date Smoking Tobacco: Never Smokeless Tobacco: Never Alcohol Use Standard Drinks/Week Comments Yes 0 (1 standard drink = 0.6 oz pur e alcohol) occasional Comments No Sex and Gender Information Value Date Recorded Sex Assigned at Female 04/29/2019 1:33 PM EDT Legal Sex Female 9:29 PM EDT Gender Identity Female 04/29/2019 1:33 PM EDT Sexual Orientation Straight 09/09/2024 12 :06 AM EST documented as of this encounter Plan of Treatment Not on file documented as of this encounter Visit Diagnoses Not on filedocumented in this encounter Care Teams Nutrition Professor Relationship Specialty Start Date End Date Jamil Lindsay MD PCP - General 07/19/17 04/21/24 Jamil Lindsay MD [address] [place] [address] [email or web address] PCP - General Family Medicine 04/22/24 Sol Chapman MD [address] [address] [email or web address] Primary Oncologist Hematology and Oncology 04/18/23 documented as of this encounter Additional Source Comments The information contained in this document represents components of the legal health record. It is not the complete legal health record.[facility]
--- OUTSIDE RECORDS SUMMARY | 2025-04-07 08:48 | XMS_ITS | Encounter Summary ---
Author Organization [facility] Address [address] [place] [address] Phone Care Team Providers Care Private Branch Exchange Service Adviser Name Role Phone Jamil Lindsay MD Primary Care Provider [phone] Sol Chapman MD Unavailable [phone] Jamil Lindsay MD Primary Care Provider [phone]- [phone] Encounter Details Date Type Department Care Team (Late st Contact Info) Description 04/27/2021 Procedure Pass [facility] [address] [place] [address] Social History Tobacco Use Types Packs/Day Years [...] on filedocumented in this encounter Care Teams Private Branch Exchange Service Adviser Relationship Specialty Start Date End Date Jamil Lindsay MD PCP - General 07/19/17 04/21/24 Jamil Lindsay MD [address] [place] [phone] [email or web address] PCP - General Family Medicine 04/22/24 Sol Chapman MD [address] [address] [email or web address] Primary Oncologist Hematology and Oncology 04/18/23 documented as of this encounter Additional Source Comments The information contained in this document represents components of the legal health record. It is not the complete legal health record.[facility]
--- OUTSIDE RECORDS SUMMARY | 2025-04-07 08:49 | XMS_ITS | Encounter Summary ---
Author Organization [facility] Address [address] [place] [address] Phone Care Team Providers Care Grievance Manager Name Role Phone Jamil Lindsay MD Primary Care Provider [phone] Sol Chapman MD Unavailable [phone] Jamil Lindsay MD Primary Care Provider [phone]- [phone] Encounter Details Date Type Department Care Team (Late st Contact Info) Description 04/27/2021 Procedure Pass [facility], Ct Scan - [facility] [address] [place] [address] Social History Tobacco Use Types Packs/Day Years [...] on filedocumented in this encounter Care Teams Grievance Manager Relationship Specialty Start Date End Date Jamil Lindsay MD PCP - General 07/19/17 04/21/24 Jamil Lindsay MD [address] [place] [address] [email or web address] PCP - General Family Medicine 04/22/24 Sol Chpaman MD [address] [place] [address] [email or web address] Primary Oncologist Hematology and Oncology 04/18/23 documented as of this encounter Additional Source Comments The information contained in this document represents components of the legal health record. It is not the complete legal health record.[facility]
--- OUTSIDE RECORDS SUMMARY | 2025-04-07 08:49 | XMS_ITS | Encounter Summary ---
Author Organization [facility] Address [address] [place] [address] Phone Care Team Providers Care Housing Coordinator Name Role Phone Jamil Lindsay MD Primary Care Provider [phone] Sol Chapman MD Unavailable [phone] [phone] Jamil Lindsay MD Primary Care Provider +- [phone] Reason for Referral * MRI/CAT Scan - Closed Specialty Diagnoses / Procedures Referred By Contac t Referred To Contact Radiology Diagnoses Intra-abdominal and pelvic swelling, mass and lump, unspecified site Procedures MRI Pelvis (GI/) CHG MRI, PELVIS, COMBO Latoya Goss PA [address] [place] [address] Phone: tel: fax: Referral ID Status Reason Start Date Expiration Date Visits Re quested Visits Authorized [id number] Closed 03/04/2021 08/29/2021 1 1 Encounter Details Date Type Department Care Team (Latest Contact Info) Description 03/04/2021 Transcribe Orders Virtual Department [address] [place] [address] Latoya Goss PA [address] [place] [phone] Intra-abdominal and pelvic swelling, mass and lump, unspecified site (Primary Dx) Social History Tobacco Use Types Packs/Day Years [...] on file documented as of this encounter Results * MRI PELVIS WITH AND WITHOUT CONTRAST (04/11/2021 12:04 PM EDT) Anatomical Region Laterality Modality Pelvis Magnetic Resonan ce 04/11/2021 4:39 PM EDT Impressions 04/11/2021 5:40 PM EDT 1.The right ovary is identified and aside from incidental hemorrhagic cyst is normal in appearance. 2.Indeterminate 3.3 cm right lower quadrant soft tissue mass. Lymphadenopathy and metastases are unlikely. This may represent a mesenchymal tumor. Several consultation recommended. 3.Additional findings as above. Narrative 04/11/2021 5:40 PM EDT HISTORY: Outside Radiology Order COMPARISON: CT abdomen pelvis 02/15/2021. TECHNIQUE: Exam performed on a 1.5 Peyton high-field MRI scanner. Large gbugf-zs-hamx axial T1 through the bony pelvis, small field of view axial T2 and STIR, coronal T2 and sagittal T2 sequences were obtained. Axial T1 with fat suppression, coronal T1 with fat suppression and T2, followed by post-gadolinium axial, sagittal and coronal T1 with fat suppression sequences were obtained. MRI PELVIS FINDINGS: Vasculature: Pelvic varices. Otherwise normal. Genitourinary: Bladder, uterus, endometrium and left ovary normal. The right ovary appears separate from this right lower quadrant mass noted below. It is situated posterior to the broad ligament containing a incidental hemorrhagic cyst measuring 1.2 cm. Trace free fluid in the cul-de-sac. No lymphadenopathy or fluid collections. Gastrointestinal tract: Limited due to motion artifact. Unremarkable. Peritoneum/retroperitoneum: There is an mildly enhancing soft tissue mass in the right lower quadrant just anterior to the psoas muscle which is predominantly T2 hypointense. It measures 3.3 x 2.3 cm corresponding to the mass on CT. Musculoskeletal: Mild L4-5 and moderate L5-S1 facet arthropathy. No destructive or suspicious bone lesions. Procedure Note Joaquim Diallo MD - 04/11/2021 HISTORY: Outside Radiology Order COMPARISON: CT abdomen pelvis 02/15/2021. TECHNIQUE: Exam performed on a 1.5 Peyton high-field MRI scanner. Vtnjlirorr-lo-jqaz axial T1 through the bony pelvis, small field of view axialT2 and STIR, coronal T2 and sagittal T2 sequences were obtained. Axial T1with fat suppression, coronal T1 with fat suppression and T2, followed bypost-gadolinium axial, sagittal and coronal T1 with fat suppressionsequences were obtained. MRI PELVIS FINDINGS: Vasculature: Pelvic varices. Otherwise normal. Genitourinary: Bladder, uterus, endometrium and left ovary normal. Theright ovary appears separate from this right lower quadrant mass notedbelow. It is situated posterior to the broad ligament containing aincidental hemorrhagic cyst measuring 1.2 cm. Trace free fluid in feusqi-ww-zqs. No lymphadenopathy or fluid collections. Gastrointestinal tract: Limited due to motion artifact. Unremarkable. Peritoneum/retroperitoneum: There is an mildly enhancing soft tissue massin the right lower quadrant just anterior to the psoas muscle which ispredominantly T2 hypointense. It measures 3.3 x 2.3 cm corresponding tothe mass on CT. Musculoskeletal: Mild L4-5 and moderate L5-S1 facet arthropathy. Nodestructive or suspicious bone lesions. IMPRESSION: 1.The right ovary is identified and aside from incidental hemorrhagic cystis normal in appearance. 2.Indeterminate 3.3 cm right lower quadrant soft tissue mass.Lymphadenopathy and metastases are unlikely. This may represent amesenchymal tumor. Several consultation recommended. 3.Additional findings as above. Latoya LUND IMG MR PELVIS Final Resu lt documented in this encounter Visit Diagnoses Diagnosis Intra-abdominal and pelvic swelling, mass and lump, unspecified site- Primary Intra-abdominal and pelvic swelling, mass and lump, unspecified site documented in this encounter Care Teams Housing Coordinator Relationship Specialty Start Date End Date Jamil Lindsay MD [email or web address] PCP - General 07/19/17 04/21/24 Jamil Lindsay MD [address] [place] [phone] [email or web address] PCP - General Family Medicine 04/22/24 Sol Chapman MD [address] [address] [email or web address] Primary Oncologist Hematology and Oncology 04/18/23 documented as of this encounter Additional Source Comments The information contained in this document represents components of the legal health record. It is not the complete legal health record.[facility]
--- OUTSIDE RECORDS SUMMARY | 2025-04-07 08:49 | XMS_ITS | Encounter Summary ---
Author Organization [facility] Address [address] [place] [address] Phone Care Team Providers Care Drum Reel Cutter Name Role Phone Jamil Lindsay MD Primary Care Provider [phone] Sol Chapman MD Unavailable [phone] Jamil Lindsay MD Primary Care Provider [phone]- [phone] Encounter Details Date Type Department Care Team (Latest Contact Info) Description 08/09/2020 Transcribe Orders Virtual Department [address] [place] [address] Latoya Goss PA [address] [place] [address] Exposure to SARS-associated coronavirus (Primary Dx) Social History Tobacco Use Types [...] documented as of this encounter Results * COVID-19 PCR Order (08/09/2020 1:25 PM EST) COVID Testing Status Specimen received in analyzing lab. Results should be available within 24 to 48 hrs. [facility] Symptomatic? NO [facility] 08/09/2020 1:25 PM EST 08/09/2020 3:00 PM EST Latoya LUND BODY FLUIDS AND STOOLS ORD ERABLES Final Result [facility] [address] [place] [address] [facility] [address] [place] [address] documented in this encounter Visit Diagnoses Diagnosis Exposure to SARS-associated coronavirus- Primary documented in this encounter Care Teams Drum Reel Cutter Relationship Specialty Start Date End Date Jamil Lindsay MD [email or web address] PCP - General 07/19/17 04/21/24 Jamil Lindsay MD [address] [place] [phone] [email or web address] PCP - General Family Medicine 04/22/24 Sol Chapman MD [address] [address] Primary Oncologist Hematology and Oncology 04/18/23 documented as of this encounter Additional Source Comments The information contained in this document represents components of the legal health record. It is not the complete legal health record.[facility]
--- OUTSIDE RECORDS SUMMARY | 2025-04-07 08:49 | XMS_ITS | Encounter Summary ---
Author Organization [facility] Address [address] [place] [address] Phone Care Team Providers Care Supervisor Nuclear Medicine Name Role Phone Jamil Lindsay MD Primary Care Provider [phone] Sol Chapman MD Unavailable [phone] Jamil Lindsay MD Primary Care Provider [phone]- [phone] Encounter Details Date Type Department Care Team (Late st Contact Info) Description 05/01/2019 Procedure Pass [place] Admitting Dept - Virtual Department [address] [place] [address] Social History Tobacco Use Types Packs/Day Years [...] on filedocumented in this encounter Care Teams Supervisor Nuclear Medicine Relationship Specialty Start Date End Date Jamil Lindsay MD [email or web address] PCP - General 07/19/17 04/21/24 Jamil Lindsay MD [address] [place] [address] [email or web address] PCP - General Family Medicine 04/22/24 Sol Chapman MD [address] [address] [email or web address] Primary Oncologist Hematology and Oncology 04/18/23 documented as of this encounter Additional Source Comments The information contained in this document represents components of the legal health record. It is not the complete legal health record.[facility]
--- OUTSIDE RECORDS SUMMARY | 2025-04-07 08:49 | XMS_ITS | Encounter Summary ---
Author Organization [facility] Address [address] [facility] [address] [place] [address] Phone Care Team Providers Care Carpenter/Labor Name Role Phone Jamil Lindsay MD Primary Care Provider [phone] Sol Chapman MD Unavailable + [phone] Jamil Lindsay MD Primary Care Provider [phone] Reason for Referral * Hospital - Outpatient - Closed Specialty Diagnoses / Procedures Referred By Ellie harding Referred To Contact Radiology Diagnoses Mass of pelvis Procedures CT Biopsy Retroperitoneum Latoya Goss PA [address] [place] [address] Phone: tel: fax: Referral ID Status Reason Start Date Expiration Date Visits Re quested Visits Authorized [id number] Closed 04/20/2021 10/17/2021 1 1 Encounter Details Date Type Department Care Team (Late st Contact Info) Description 04/27/2021 Ancillary Orders [facility], Ct Scan - [facility] [address] [place] [address] Latoya Goss PA [address] [place] [phone] Mass of pelvis Social History Tobacco Use [...] documented as of this encounter Results * CT Biopsy Retroperitoneum (04/27/2021 2:10 PM EDT) Narrative SYSTEMGENERATED, DOCUMENTATION - 04/27/2021 2:10 PM EDT This procedure was used for CT image guidance only and not interpreted by a provider. Please refer to associated case for complete documentation. us Jamil Lindsay MD IMG IR ABDOMINAL Final Resu lt documented in this encounter Visit Diagnoses Diagnosis Mass of pelvis Mass of pelvis documented in this encounter Care Teams Carpenter/Labor Relationship Specialty Start Date End Date Jamil Lindsay MD [email or web address] PCP - General 07/19/17 04/21/24 Jamil Lindsay MD [address] [place] [phone] [email or web address] PCP - General Family Medicine 04/22/24 Sol Chapman MD [address] [address] Primary Oncologist Hematology and Oncology 04/18/23 documented as of this encounter Additional Source Comments The information contained in this document represents components of the legal health record. It is not the complete legal health record.[facility]
--- OUTSIDE RECORDS SUMMARY | 2025-04-07 08:49 | XMS_ITS | Encounter Summary ---
Author Organization [facility] Address [address] [place] [address] Phone Care Team Providers Care Education Reviewer Name Role Phone Jamil Lindsay MD Primary Care Provider [phone] Sol Chapman MD Unavailable [phone] Jamil Lindsay MD Primary Care Provider [phone]- [phone] Encounter Details Date Type Department Care Team (Late st Contact Info) Description 03/04/2021 Procedure Pass [facility], [address] [address] Social History Tobacco Use Types Packs/Day Years [...] on filedocumented in this encounter Care Teams Education Reviewer Relationship Specialty Start Date End Date Jamil Lindsay MD PCP - General 07/19/17 04/21/24 Jamil Lindsay MD [address] [place] [phone] [email or web address] PCP - General Family Medicine 04/22/24 Sol Chapman MD [address] [place] [address] [email or web address] Primary Oncologist Hematology and Oncology 04/18/23 documented as of this encounter Additional Source Comments The information contained in this document represents components of the legal health record. It is not the complete legal health record.[facility]
--- OUTSIDE RECORDS SUMMARY | 2025-04-07 08:49 | XMS_ITS | Encounter Summary ---
Author Organization [facility] Address [address] [facility] [address] [place] [address] Phone Care Team Providers Care Hydraulic Riveter Name Role Phone Jamil Lindsay MD Primary Care Provider [phone] Sol Chapman MD Unavailable [phone] Jamil Lindsay MD Primary Care Provider +1- [phone] Encounter Details Date Type Department Care Team (Late st Contact Info) Description 04/19/2021 Procedure Pass [facility] [address] [place] [address] Social History Tobacco Use Types Packs/Day Years [...] on filedocumented in this encounter Care Teams Hydraulic Riveter Relationship Specialty Start Date End Date Jamil Lindsay MD PCP - General 07/19/17 04/21/24 Jamil Lindsay MD [address] [place] [phone] [email or web address] PCP - General Family Medicine 04/22/24 Sol Chapman MD [address] [address] [email or web address] Primary Oncologist Hematology and Oncology 04/18/23 documented as of this encounter Additional Source Comments The information contained in this document represents components of the legal health record. It is not the complete legal health record.[facility]
--- OUTSIDE RECORDS SUMMARY | 2025-04-07 08:49 | XMS_ITS | Clinical Summary ---
Author Organization [facility] Address [address] [facility] [address] [place] [address] Phone Care Team Providers Care Twisting Press Operator Name Role Phone Sol Chapman MD Unavailable Jamil Lindsay MD Primary Care Provider Allergies Active Allergy Reactions Criticality Noted Date Comments Codeine Nausea and/or Vomiting 04/29/2019 Medications baclofen (LIORESAL) 5 mg tablet TAKE 1 TABLET BY MOUTH AT BEDTIME NEEDED FOR BACK PAIN 4 Active pramipexole (MIRAPEX) 0.25 MG tablet 4 Active estradioL (VIVELLE-DOT) 0.025 mg/24 hr APPLY 1 PATCH TRANSDERMALLY TWICE A WEEK 5 Active progesterone (PROMETRIUM) 100 mg capsule 5 Active dextroamphetam ine-amphetamin e (ADDERALL XR) 20 MG 24 hr capsule TAKE 1 CAPSULE BY MOUTH EVERY DAY FOR 28 DAYS 5 Active sertraline (ZOLOFT) 50 MG tablet Take 1 tablet by mouth every morning. 5 Active Active Problems No known active problems Immunizations Immunization Administration Dates Next Due COVID-19 (Pre-05/07) Moderna Vaccine, mRNA, PF 0 11/08/2020,10/10/2020 INFLUENZA, SPLIT VIRUS, TRIVALENT W/ PRESERVATIV E IM 04/14/2011 Influenza Quadrivalent MDCK Preservative Free IM 08/18/2019 Influenza Quadrivalent Preservative Free IM 01/0 01/2021 Influenza trivalent preservative free intraderma l 05/02/2012 Tdap 04/14/2011 Social History Tobacco Use Types Packs/Day Years Used Date Smoking Tobacco: Never Smokeless Tobacco: Never Alcohol Use Standard Drinks/Week Comments Yes 5 (1 standard drink = 0.6 oz pur e alcohol) Education Answer Date Recorded Are you interested in more education? Not on yani e 11/10/2022 Are you concerned about learning? Not on file 11/10/2022 No 11/10/2022 No 11/10/2022 Digital Access Answer Date Recorded No 12/08/2022 No 12/08/2022 Reliable internet access at home? Not on file 12/08/2022 Device with a working camera? Not on file Intimate Partner Violence Answer Date R ecorded Are you denied basic needs s uch as food, clothing, or medical care? No 09/08/2024 In the past 12 months have y ou been in a relationship with a person who hurts, threatens, or tries to control you? No 09/08/2024 Are you denied basic needs s uch as food, clothing, or medical care? No 09/08/2024 In the past 12 months have y ou been in a relationship with a person who hurts, threatens, or tries to control you? No 09/08/2024 Comments No Sex and Gender Information Value Date Recorded Sex Assigned at Female 04/29/2019 1:33 PM EDT Legal Sex Female 9:29 PM EDT Gender Identity Female 04/29/2019 1:33 PM EDT Sexual Orientation Straight 09/09/2024 12 :06 AM EST Last Filed Vital Signs Vital Sign Reading Time Taken Comments Blood Pressure 102/60 10/17/2024 11:45 AM EDT Pulse 58 09/09/2024 12:08 AM EST Temperature 36.5 C (97.7 F) 09/09/2024 12:08 AM EST Respiratory Rate 12 09/09/2024 12:08 AM EST Oxygen Saturation 100% 09/09/2024 12:08 AM EST Inhaled Oxygen Concentration - - Weight 90.7 kg (200 lb) 10/17/2024 11:45 AM EDT per pt Height 175.3 cm (5' 9 ) 10/17/2024 11:45 AM EDT Body Mass Index 29.53 10/17/2024 11:45 AM EDT Plan of Treatment Health Maintenance Due Date Last Done Comments LIPID PANEL 1974 DEPRESSION SCREENING 1986 HEPATITIS C SCREENING 1992 HIV ONE-TIME SCREENING (18-65 YEARS) 1992 MAMMOGRAM 2014 COLOGUARD 12/07/2019 COLONOSCOPY 12/07/2019 COLORECTAL CANCER SCREENING 12/07/2019 FIT TEST 12/07/2019 FOBT 12/07/2019 SIGMOIDOSCOPY 12/07/2019 VIRTUAL COLONOSCOPY 12/07/2019 SCREENING FOR DIABETES 02/16/2024 02/15/2021 PNEUMOCOCCAL VACCINES (50+ years) (1 of 1 - PCV) 2024 ZOSTER VACCINES (1 of 2) 2024 INFLUENZA VACCINE (#1) 2025 , 04/24/2023, 06/21/2022, Additional history exists PAP SMEAR 06/21/2025 06/21/2022 Adult Td,Tdap Booster 05/18/2031 05/18/2021, 011 COVID-19 VACCINE Completed 03/24/2024, 04/2023, 04/06/2022, Additional history exists SMOKING STATUS SCREENING (Once After 26 Yrs) Completed 10/17/2024 HEPATITIS A VACCINES Aged Out No long er eligible based on patient's age to complete this topic HIB VACCINES Aged Out No longer eligi ble based on patient's age to complete this topic MENINGOCOCCAL VACCINES (ACWY) Aged Out No longer eligible based on patient's age to complete this topic MENINGOCOCCAL VACCINES (B) Aged Out N o longer eligible based on patient's age to complete this topic Medical Devices Not on file Procedures Procedure Name Priority Date/Time Associated Diagnosis Comments PAP TEST Routine 06/21/2022 12:00 AM EST from Last 3 Months or Most Recently Relevant to Health Maintenance Results * Pap Smear (06/21/2022 12:00 AM EST) 06/21/2022 06/22/2022 9:2 0 AM EST Narrative SEE NARRATIVE - 06/28/2022 2:32 PM EST [address] [place] [address] Computer Aide: Ania Ndiaye MD SURFACE GRINDER Cytology Report FINAL DIAGNOSIS A. PAP SMEAR (SUREPATH) CE: SPECIMEN ADEQUACY: Satisfactory for evaluation; transformation zone present. INTERPRETATION: NEGATIVE FOR INTRAEPITHELIAL LESION OR MALIGNANCY. Electronically Signed Out By: NELIA Betancur(ASCP) NELIA Kwong(ASCP) The Pap test is a screening test primarily for squamous cancers and precursors and has associated false-negative and false-positive results. New technologies such as liquid-based preparations may decrease but will not eliminate all false-negative results. Regular sampling and follow-up of unexplained clinical signs and symptoms are recommended to minimize false negative results. PROCEDURES/ADDENDA HPV Testing (Requested) Ordered Date: 06/22/2022 A. PAP SMEAR (SUREPATH) CE: Human Papilloma Virus Test Negative for high-risk human papillomavirus types 16, 18, 45 and the Other high risk probe set (Includes 31, 33, 35, 39, 51, 52, 56, 58, 59, 66, 68) by Mobile-XL Onclarity HR-HPV analysis. Clinical correlation is advised. This HPV test was performed at [facility], [address] [place] [address]. This test has been FDA approved for SurePath cervical cytology specimens. The accuracy and precision of this test for all other specimen sources has been verified in the Cytopathology Laboratory of the [facility] and has not been cleared or approved by the U.S. Food and Drug Administration. Clinical correlation is advised. CLINICAL HISTORY Date of Last Menstrual Period: 06-09-2022 Contraceptive History: OCPs Other Clinical Conditions: Screening Pap SPECIMEN SOURCE A: PAP SMEAR (SUREPATH) CE Patient Name: GURWINDER HOWARD : 1975 (Age: 46) Sex: F Institution: [facility] Location: [facility] Date of Collection: 06/21/2022 Date of Reported: 06/28/2022 14:32 Results to: ASHELY Romo us Unknown Unknown CYTOLOGY ORDERABLES Final Res ult SEE NARRATIVE from Last 3 Months or Most Recently Relevant to Health Maintenance Insurance [facility] Member Subscriber Plan / Payer (Ef fective 2018-Present) Name:Gurwinder Hwoard Relation to Subscriber:Self Name:Gurwinder Howard Payer ID:Not on file Type:O Address: [place] [id number] Advance Directives For more information, please contact: [phone] (9AM - 5PM [place], Sunday-Sunday) * Full Code (Presumed) (Latest Code Status on File) Date Activated Date Inactivated Comments 05/01/2019 12:14 PM 05/01/2019 9:51 PM Care Teams Twisting Press Operator Relationship Specialty Start Date End Date Jamil Lindsay MD [address] [place] [phone] [email or web address] PCP - General Family Medicine 04/22/24 Sol Chapman MD [address] [place] [address] [email or web address] Primary Oncologist Hematology and Oncology 04/18/23 Additional Source Comments The information contained in this document represents components of the legal health record. It is not the complete legal health record.[facility]
--- OUTSIDE RECORDS SUMMARY | 2025-04-07 08:49 | XMS_ITS | Encounter Summary ---
Author Organization [facility] Address [address] [facility] [address] [place] [address] Phone Care Team Providers Care Email Marketing Intern Name Role Phone Jamil Lindsay MD Primary Care Provider [phone]- [phone] Sol Chapman MD Unavailable [phone] Jamil Lindsay MD Primary Care Provider [phone]- [phone] Encounter Details Date Type Department Care Team (Late st Contact Info) Description 02/15/2021 Procedure Pass [facility], Ct Scan - [facility] [address] [place] [address] Social History Tobacco Use Types Packs/Day Years [...] on filedocumented in this encounter Care Teams Email Marketing Intern Relationship Specialty Start Date End Date Jamil Lindsay MD [email or web address] PCP - General 07/19/17 04/21/24 Jamil Lindsay MD [address] [place] [address] [email or web address] PCP - General Family Medicine 04/22/24 Sol Chapman MD [address] [place] [address] [email or web address] Primary Oncologist Hematology and Oncology 04/18/23 documented as of this encounter Additional Source Comments The information contained in this document represents components of the legal health record. It is not the complete legal health record.[facility]
== END 2025-04-07 08:40 | disposition home or self-care (01) ==
LOC: HO.RHES 08:05
PROVIDERS: PCP Physician Assistant Medical; Visit Provider Internal Medicine Rheumatology
DX: M54.50 Low back pain, unspecified (principal); G89.29 Other chronic pain; Z79.1 Long term (current) use of non-steroidal anti-inflammatories (NSAID); M47.812 Spondylosis without myelopathy or radiculopathy, cervical region; M19.041 Primary osteoarthritis, right hand; M19.042 Primary osteoarthritis, left hand; M25.50 Pain in unspecified joint; M47.816 Spondylosis without myelopathy or radiculopathy, lumbar region; S39.012D Strain of muscle, fascia and tendon of lower back, subsequent encounter; M45.A0 Non-radiographic axial spondyloarthritis of unspecified sites in spine
CPT/HCPCS: 99214; G2211

== ENCOUNTER 2025-07-02 08:43 | Outpatient (AMB) | payer OTHER, SELFPAY ==
[2025-07-02 08:48] VITALS: BP 126/90; PULSE 70; O2SAT 98; BMI 30.5
--- NOTE | 2025-07-02 08:48 | A.OFFVIS_ITS ---
Vital Signs 07/02/25 08:48 Height 5 ft 9 in Weight 206 lb 9.17 oz BMI 30.5 BP 126/90 H Blood Pressure Location Rt brachial Position Sitting Pulse 70 Pulse Source Pulse Oximeter Pulse Oximetry (%) 98 Oxygen Delivery Method Room Air Intake Visit Reasons: 3months Intake Note: Patient presents for osteoarthritis. Accompanied by: Self / Same As Patient Allergies twylaienestephania Allergy (Intermediate, Uncoded 09/25/24 07:59) diziness [facility] HPI 3months: Details: She is experiencing intermittent knee pain. Frequency has improved since last visit. It may occur due to her position of sleeping at night. She will wake up and stretch or add a pillow in between her knees. She takes Tylenol 650 mg 8 tablets in a day to prevent pain. She also takes Celebrex 200 mg twice a day prescribed by PCP. Morning stiffness is 30 minutes. She sometimes experiences swelling but it self resolves. Denies dactylitis. Right trapezius feels tight. Sometimes she ice the area. She may feel noise coming from her neck with rotation. Icing reduces intensity of the noise. [facility] Medical History Anxiety ADD (attention deficit disorder) Osteoarthritis Surgical History History of cholecystectomy Family History Father Lung cancer Social History Alcohol intake: current Alcohol intake frequency: 0-2 drinks per day Alcohol type: wine Patient Tobacco Use Status: Former Tobacco user Years Smoked: 1 Substance Use Type: Marijuana Physical Exam Vital Signs: Last Vital Signs Pulse 70 07/02/25 08:48 BP 126/90 H 07/02/25 08:48 Pulse Ox 98 07/02/25 08:48 Oxygen Delivery Method Room Air 07/02/25 08:48 BMI result Body Mass Index 30.5 Const Other: General: Comfortable CVS: RRR Respiratory: clear to auscultation bilaterally. Good respiratory effort Skin: Small papules left extensor elbow without scale MSK: No tenderness of joints in her hands. No synovitis present. Normal range of motion of upper extremities and lower extremities. She has normal range of motion of her cervical spine. Tender bilateral SI joint. No spinous process tenderness. Negative WALLY. Normal lumbar flexion. Assessment & Plan Assessment & Plan (1) Chronic back pain: Comment: Due to combination of non radiographic ankylosing spondylitis (HLA B27 positive with normal inflammatory markers, x-ray SI joint/L-spine/MRI SI joints unremarkable for radiographic findings of axial inflammatory arthritis, initially presenting with all day morning stiffness, response to celecoxib), degenerative back pain (radiographic findings of lumbar spondylosis 10/2023, pain relief with rest) and myofascial strain from paraspinal muscles. PT improve neck pain. Baclofen PRN help neck pain. She has not started PT for knee strengthening. Rheumatology history: [facility] has had workup for axial inflammatory arthritis with workup revealing positive HLA B27 antibody, no x-ray imaging findings of axial inflammatory arthritis with normal inflammatory markers. She had greater response to Celebrex compared to meloxicam. Improvement with physical therapy and baclofen 5 mg q.h.s. she has had chronic R SI joint pain after removal of tissue from localized area to SI joint years ago. MRI pelvis 10/10/2024 SI joints normal. Code(s): M54.9 - Dorsalgia, unspecified; G89.29 - Other chronic pain Category: Medical Qualifiers: Back pain laterality: unspecified Back pain location: low back pain Sciatica presence: without sciatica Qualified Code(s): M54.50 - Low back pain, unspecified; G89.29 - Other chronic pain Plan: Home exercise program for C-spine strengthening. I have added bilateral knee strengthening to PT order. If knee pain does not improve, we will order x-rays of bilateral knees next visit Continue Celebrex 200 mg twice a day prescribed by PCP. She has kidney and liver function checked twice a year for drug monitoring on chronic NSAID I have ordered LFTs as patient is taking too much Tylenol. Advised her that she can only take 650 mg tablets maximum 6 in a day. I recommend that she use Tylenol PRN pain rather than scheduled. Inflammatory markers ordered for disease monitoring Continue baclofen 10 mg q.h.s. p.r.n. neck pain Return to clinic in 6 months (2) retirement (current) use of non-steroidal anti-inflammatories (nsaid): Code(s): Z79.1 - retirement (current) use of non-steroidal anti-inflammatories (NSAID) Category: Medical Plan: See above (3) Cervical spondylosis: Code(s): M47.812 - Spondylosis without myelopathy or radiculopathy, cervical region Category: Medical Plan: See above (4) Osteoarthritis, hand: Comment: Pain is controlled. Code(s): M19.049 - Primary osteoarthritis, unspecified hand Category: Medical Qualifiers: Laterality: bilateral Osteoarthritis type: primary Qualified Code(s): M19.041 - Primary osteoarthritis, right hand; M19.042 - Primary osteoarthritis, left hand Plan: Monitor clinically (5) Hypermobility arthralgia: Comment: In hands leading to hyperextension of fingers. Code(s): M25.50 - Pain in unspecified joint Category: Medical Plan: Monitor clinically (6) Lumbar spondylosis: Code(s): M47.816 - Spondylosis without myelopathy or radiculopathy, lumbar region Category: Medical Plan: See above (7) Strain of lumbar paraspinal muscle: Code(s): S39.012A - Strain of muscle, fascia and tendon of lower back, initial encounter Category: Medical Qualifiers: Encounter type: subsequent encounter Qualified Code(s): S39.012D - Strain of muscle, fascia and tendon of lower back, subsequent encounter Plan: See above (8) Non-radiographic axial spondyloarthritis: Code(s): M45.A0 - Non-radiographic axial spondyloarthritis of unspecified sites in spine Category: Medical Plan: See above Orders: Orders C Reactive Protein Today G89.29 - Other chronic pain, M45.9 - Ankylosing spondylitis of unspecified sites in spine, M54.50 - Low back pain, unspecified, Z79.1 - continuous churn buttermaker (current) use of non-steroidal anti-inflammatories (NSAID), Z79.899 - Other termite exterminator helper (current) drug therapy Alanine Aminotransferase Today G89.29 - Other chronic pain, M45.9 - Ankylosing spondylitis of unspecified sites in spine, M54.50 - Low back pain, unspecified, Z79.1 - continuous churn buttermaker (current) use of non-steroidal anti-inflammatories (NSAID) Aspartate Amino Transferase Today G89.29 - Other chronic pain, M45.9 - Ankylosing spondylitis of unspecified sites in spine, M54.50 - Low back pain, unspecified, Z79.1 - continuous churn buttermaker (current) use of non-steroidal anti- inflammatories (NSAID) Erythrocyte Sedimentation Rate Today G89.29 - Other chronic pain, M45.9 - Ankylosing spondylitis of unspecified sites in spine, M54.50 - Low back pain, unspecified, Z79.1 - continuous churn buttermaker (current) use of non-steroidal anti- inflammatories (NSAID), Z79.899 - Other termite exterminator helper (current) drug therapy Medications: Refilled baclofen 5 mg PO DAILY PRN 90 tabs 1RF muscle spasm Coding Level of Care Code Est Pt Level 4 (62218) Add On Problem Visit Only Diagnoses Chronic low back pain without sciatica, unspecified back pain laterality M54.50; G89.29 Back pain laterality: unspecified Back pain location: low back pain Sciatica presence: without sciatica continuous churn buttermaker (current) use of non-steroidal anti-inflammatories (nsaid) Z79.1 Cervical spondylosis M47.812 Primary osteoarthritis of both hands M19.041; M19.042 Laterality: bilateral Osteoarthritis type: primary Hypermobility arthralgia M25.50 Lumbar spondylosis M47.816 Strain of lumbar paraspinous muscle, subsequent encounter S39.012D Encounter type: subsequent encounter Non-radiographic axial spondyloarthritis M45.A0
== END 2025-07-02 09:13 | disposition home or self-care (01) ==
LOC: HO.RHES 08:43
PROVIDERS: PCP Physician Assistant Medical; Visit Provider Internal Medicine Rheumatology
DX: M54.50 Low back pain, unspecified (principal); G89.29 Other chronic pain; Z79.1 Long term (current) use of non-steroidal anti-inflammatories (NSAID); M47.812 Spondylosis without myelopathy or radiculopathy, cervical region; M19.041 Primary osteoarthritis, right hand; M19.042 Primary osteoarthritis, left hand; M25.50 Pain in unspecified joint; M47.816 Spondylosis without myelopathy or radiculopathy, lumbar region; S39.012D Strain of muscle, fascia and tendon of lower back, subsequent encounter; M45.A0 Non-radiographic axial spondyloarthritis of unspecified sites in spine
CPT/HCPCS: 99214; G2211

== ENCOUNTER 2025-07-02 08:43 | Outpatient (REF) | payer OTHER, SELFPAY ==
--- OUTSIDE RECORDS SUMMARY | 2025-07-02 10:31 | XMS_ITS | Encounter Summary ---
Author Organization [facility] Address [address] [place] [address] Phone Care Team Providers Care Senior Procurement Manager Name Role Phone Jamil Lindsay MD Primary Care Provider [phone] Sol Chapman MD Unavailable + [phone] Jamil Lindsay MD Primary Care Provider [phone] Reason for Referral * Hospital - Outpatient - Closed Specialty Diagnoses / Procedures Referred By Ellie harding Referred To Contact Radiology Diagnoses Mass of pelvis Procedures CT Biopsy Retroperitoneum Latoya Goss PA [address] [place] [address] Phone: tel: fax: Referral ID Status Reason Start Date Expiration Date Visits Re quested Visits Authorized [id number] Closed 04/20/2021 10/17/2021 1 1 Encounter Details Date Type Department Care Team (Late st Contact Info) Description 04/27/2021 Ancillary Orders [facility], Ct Scan - [place] [address] [place] [address] Latoya Goss PA [address] [place] [phone] Mass of pelvis Social History Tobacco Use [...] pelvis documented in this encounter Care Teams Senior Procurement Manager Relationship Specialty Start Date End Date Jamil Lindsay MD [email or web address] PCP - General 07/19/17 04/21/24 Jamil Lindsay MD [address] [place] [phone] [email or web address] PCP - General Family Medicine 04/22/24 Sol Chapman MD [address] [address] Primary Oncologist Hematology and Oncology 04/18/23 documented as of this encounter Additional Source Comments The information contained in this document represents components of the legal health record. It is not the complete legal health record.[facility]
--- OUTSIDE RECORDS SUMMARY | 2025-07-02 10:31 | XMS_ITS | Encounter Summary ---
Author Organization [facility] Address [address] [place] [address] Phone Care Team Providers Care Casting Carrier Name Role Phone Jamil Lindsay MD Primary Care Provider [phone] Sol Chapman MD Unavailable [phone] Jamil Lindsay MD Primary Care Provider [phone]- [phone] Encounter Details Date Type Department Care Team (Late st Contact Info) Description 04/19/2021 Procedure Pass [facility] [address] [place] [address] Social History Tobacco Use Types Packs/Day Years [...] on filedocumented in this encounter Care Teams Casting Carrier Relationship Specialty Start Date End Date Jamil Lindsay MD PCP - General 07/19/17 04/21/24 Jamil Lindsay MD [address] [place] [address], [place] [address] [email or web address] PCP - General Family Medicine 04/22/24 Sol Chapman MD [address] [address] [email or web address] Primary Oncologist Hematology and Oncology 04/18/23 documented as of this encounter Additional Source Comments The information contained in this document represents components of the legal health record. It is not the complete legal health record.[facility]
--- OUTSIDE RECORDS SUMMARY | 2025-07-02 10:31 | XMS_ITS | Encounter Summary ---
Author Organization [facility] Address [address] [place] [address] Phone Care Team Providers Care Field Crop Harvest Worker Name Role Phone Jamil Lindsay MD Primary Care Provider [phone] Sol Chapman MD Unavailable [phone] Jamil Lindsay MD Primary Care Provider [phone]- [phone] Reason for Referral * MRI/CAT Scan - Closed Specialty Diagnoses / Procedures Referred By Contac t Referred To Contact Radiology Diagnoses Intra-abdominal and pelvic swelling, mass and lump, unspecified site Procedures MRI Pelvis (GI/) CHG MRI, PELVIS, COMBO Latoya Goss PA [address] [place] [address] Phone: tel: fax: Referral ID Status Reason Start Date Expiration Date Visits Re quested Visits Authorized [id number] Closed 03/04/2021 08/29/2021 1 1 Encounter Details Date Type Department Care Team (Latest Contact Info) Description 03/04/2021 Transcribe Orders Virtual Department [address] [place] [address] Latoya Goss PA [address] [place] [phone] Intra-abdominal and pelvic swelling, mass and lump, [...] a 1.5 Peyton high-field MRI scanner. Large vauye-wz-yutx axial T1 through the bony pelvis, small [...] on a 1.5 Peyton high-field MRI scanner. Ebavrnkelj-rz-rtrg axial T1 through the bony pelvis, small [...] measuring 1.2 cm. Trace free fluid in thlioi-ja-hvo. No lymphadenopathy or fluid collections. Gastrointestinal tract: [...] site documented in this encounter Care Teams Field Crop Harvest Worker Relationship Specialty Start Date End Date Jamil Lindsay MD [email or web address] PCP - General 07/19/17 04/21/24 Jamil Lindsay MD [address] [place] [phone] [email or web address] PCP - General Family Medicine 04/22/24 Sol Chapman MD [address] [address] [email or web address] Primary Oncologist Hematology and Oncology 04/18/23 documented as of this encounter Additional Source Comments The information contained in this document represents components of the legal health record. It is not the complete legal health record.[facility]
--- OUTSIDE RECORDS SUMMARY | 2025-07-02 10:31 | XMS_ITS | Encounter Summary ---
Author Organization [facility] Address [address] [place] [address] Phone Care Team Providers Care Duct Installer Name Role Phone Jamil Lindsay MD Primary Care Provider [phone] Sol Chapman MD Unavailable [phone] Jamil Lindsay MD Primary Care Provider [phone]- [phone] Encounter Details Date Type Department Care Team (Late st Contact Info) Description 03/04/2021 Procedure Pass [facility], [address] [address] Social History Tobacco Use Types Packs/Day Years [...] on filedocumented in this encounter Care Teams Duct Installer Relationship Specialty Start Date End Date Jamil Lindsay MD [email or web address] PCP - General 07/19/17 04/21/24 Jamil Lindsay MD [address] [place] [address] PCP - General Family Medicine 04/22/24 Sol Chapman MD [address] [place] [address] [email or web address] Primary Oncologist Hematology and Oncology 04/18/23 documented as of this encounter Additional Source Comments The information contained in this document represents components of the legal health record. It is not the complete legal health record.[facility]
--- OUTSIDE RECORDS SUMMARY | 2025-07-02 10:31 | XMS_ITS | Encounter Summary ---
Author Organization [facility] Address [address] [facility] [address] [place] [address] Phone Care Team Providers Care Beef Pusher Name Role Phone Jamil Lindsay MD Primary Care Provider [phone] Sol Chapman MD Unavailable [phone] Jamil Lindsay MD Primary Care Provider [phone]- [phone] Encounter Details Date Type Department Care Team (Late st Contact Info) Description 05/01/2019 Procedure Pass [place] Admitting Dept - Virtual Department [address] [place] [address] Social History Tobacco Use Types Packs/Day Years [...] on filedocumented in this encounter Care Teams Beef Pusher Relationship Specialty Start Date End Date Jamil Lindsay MD PCP - General 07/19/17 04/21/24 Jamil Lindsay MD [address] [place] [address] [email or web address] PCP - General Family Medicine 04/22/24 Sol Chapman MD [address] [address] [email or web address] Primary Oncologist Hematology and Oncology 04/18/23 documented as of this encounter Additional Source Comments The information contained in this document represents components of the legal health record. It is not the complete legal health record.[facility]
--- OUTSIDE RECORDS SUMMARY | 2025-07-02 10:31 | XMS_ITS | Encounter Summary ---
Author Organization [facility] Address [address] [place] [address] Phone Care Team Providers Care Small Equipment Operator Name Role Phone Jamil Lindsay MD Primary Care Provider [phone] Sol Chapman MD Unavailable [phone] Jamil Lindsay MD Primary Care Provider [phone]- [phone] Encounter Details Date Type Department Care Team (Late st Contact Info) Description 05/01/2019 Procedure Pass [place] Admitting Dept - Virtual Department [address] [place] [address] Social History Tobacco Use Types Packs/Day Years [...] on filedocumented in this encounter Care Teams Small Equipment Operator Relationship Specialty Start Date End Date Jamil Lindsay MD PCP - General 07/19/17 04/21/24 Jamil Lindsay MD [address] [place] [address] [email or web address] PCP - General Family Medicine 04/22/24 Sol Chapman MD [address] [address] [email or web address] Primary Oncologist Hematology and Oncology 04/18/23 documented as of this encounter Additional Source Comments The information contained in this document represents components of the legal health record. It is not the complete legal health record.[facility]
--- OUTSIDE RECORDS SUMMARY | 2025-07-02 10:31 | XMS_ITS | Encounter Summary ---
Author Organization [facility] Address [address] [facility] [address] [place] [address] Phone Care Team Providers Care Pt Escort Name Role Phone Jamil Lindsay MD Primary Care Provider [phone] Sol Chapman MD Unavailable [phone] Jamil Lindsay MD Primary Care Provider +[phone]- [phone] Encounter Details Date Type Department Care Team (Late st Contact Info) Description 02/15/2021 Procedure Pass [facility], Ct Scan - [facility] [address] [place] [address] Social History Tobacco Use Types Packs/Day Years [...] on filedocumented in this encounter Care Teams Pt Escort Relationship Specialty Start Date End Date Jamil Lindsay MD PCP - General 07/19/17 04/21/24 Jamil Lindsay MD [address] [place] [address] [email or web address] PCP - General Family Medicine 04/22/24 Sol Chapman MD [address] [place] [address] [email or web address] Primary Oncologist Hematology and Oncology 04/18/23 documented as of this encounter Additional Source Comments The information contained in this document represents components of the legal health record. It is not the complete legal health record.[facility]
--- OUTSIDE RECORDS SUMMARY | 2025-07-02 10:31 | XMS_ITS | Clinical Summary ---
Author Organization [facility] Address [address] [address] [place] [address] Phone Care Team Providers Care Patient Registration Rep Name Role Phone Sol Chapman MD Unavailable [...] 2025 , 04/24/2023, 06/21/2022, Additional history exists COVID-19 VACCINE (2024- season) 2025 03/24/2024, 04/24/2023, 04/06/2022, Additional history exists PAP SMEAR 06/21/2025 06/21/2022 Adult Td,Tdap Booster 05/18/2031 05/18/2021, 011 RSV VACCINE (1 - 1-dose 75+ series) 2049 SMOKING STATUS SCREENING (Once After 26 Yrs) [...] SEE NARRATIVE - 06/28/2022 2:32 [place] [address] Referral Specialist: Ania Ndiaye MD GRAINING OPERATOR Cytology Report FINAL DIAGNOSIS A. PAP SMEAR [...] 52, 56, 58, 59, 66, 68) by [employer] Onclarity HR-HPV analysis. Clinical correlation is advised. This HPV test was performed at [facility], [address] [place] [address]. This test has been FDA approved for SurePath cervical cytology specimens. The accuracy and precision of this test for all other specimen sources has been verified in the Cytopathology Laboratory of the [facility] and has not been cleared or approved by the U.S. Food and Drug Administration. Clinical correlation is advised. CLINICAL HISTORY Date of Last Menstrual Period: 06-09-2022 Contraceptive History: OCPs Other Clinical Conditions: Screening Pap SPECIMEN SOURCE A: PAP SMEAR (SUREPATH) CE Patient Name: GURWINDER HOWARD : 1975 (Age: 46) Sex: F Institution: [facility] Location: [facility] Date of Collection: 06/21/2022 Date of Reported: 06/28/2022 14:32 Results to: ASHELY Romo us Unknown Unknown MD CYTOLOGY ORDERABLES Final Res ult SEE NARRATIVE from Last 3 Months or Most Recently Relevant to Health Maintenance Insurance [facility] [place] [address] [facility] [place] [address] [place] [address] Advance Directives For more information, please contact: [phone] (9AM - 5PM [place], Sunday-Sunday) * Full Code (Presumed) (Latest Code Status on File) Date Activated Date Inactivated Comments 05/01/2019 12:14 PM 05/01/2019 9:51 PM Care Teams Patient Registration Rep Relationship Specialty Start Date End Date Jamil Lindsay MD [address] [place] [phone] [email or web address] PCP - General Family Medicine 04/22/24 Sol Chapman MD [address] [address] [email or web address] Primary Oncologist Hematology and Oncology 04/18/23 Additional Source Comments The information contained in this document represents components of the legal health record. It is not the complete legal health record.[facility]
--- OUTSIDE RECORDS SUMMARY | 2025-07-02 10:31 | XMS_ITS | Encounter Summary ---
Author Organization [facility] Address [address] [facility] [address] [place] [address] Phone Care Team Providers Care Geological Technical Officer Name Role Phone Jamil Lindsay MD Primary Care Provider +1- [phone] Sol Chapman MD Unavailable [phone] Jamil Lindsay MD Primary Care Provider +[phone]- [phone] Encounter Details Date Type Department Care Team (Late st Contact Info) Description 04/27/2021 Procedure Pass [facility], Ct Scan - [facility] [address] [place] [address] Social History Tobacco Use Types Packs/Day Years [...] on filedocumented in this encounter Care Teams Geological Technical Officer Relationship Specialty Start Date End Date Jamil Lindsay MD PCP - General 07/19/17 04/21/24 Jamil Lindsay MD [address] [place] [address] [email or web address] PCP - General Family Medicine 04/22/24 Sol Chapman MD [address] [place] [address] [email or web address] Primary Oncologist Hematology and Oncology 04/18/23 documented as of this encounter Additional Source Comments The information contained in this document represents components of the legal health record. It is not the complete legal health record.[facility]
--- OUTSIDE RECORDS SUMMARY | 2025-07-02 10:31 | XMS_ITS | Encounter Summary ---
Author Organization [facility] Address [address] [facility] [address] [place] [address] Phone Care Team Providers Care Parts And Service Manager Name Role Phone Jamil Lindsay MD Primary Care Provider [phone] Sol Chapman MD Unavailable [phone] Jamil Lindsay MD Primary Care Provider +[phone]- [phone] Encounter Details Date Type Department Care Team (Late st Contact Info) Description 04/27/2021 Ancillary Orders [facility], Ct Scan - [facility] [address] [place] [address] Latoya Goss PA [address] [place] [address] Mass of pelvis Social History [...] pelvis documented in this encounter Care Teams Parts And Service Manager Relationship Specialty Start Date End Date Jamil Lindsay MD [email or web address] PCP - General 07/19/17 04/21/24 Jamil Lindsay MD [address] [place] [address] [email or web address] PCP - General Family Medicine 04/22/24 Sol Chapman MD [address] [place] [address] [email or web address] Primary Oncologist Hematology and Oncology 04/18/23 documented as of this encounter Additional Source Comments The information contained in this document represents components of the legal health record. It is not the complete legal health record.[facility]
--- OUTSIDE RECORDS SUMMARY | 2025-07-02 10:31 | XMS_ITS | Encounter Summary ---
Author Organization [facility] Address [address] [place] [address] Phone Care Team Providers Care Esol Teacher Name Role Phone Jamil Lindsay MD Primary Care Provider [phone] Sol Chapman MD Unavailable [phone] Jamil Lindsay MD Primary Care Provider [phone]- [phone] Encounter Details Date Type Department Care Team (Latest Contact Info) Description 08/09/2020 Transcribe Orders Virtual Department [address] [place] [address] Latoya Goss PA [address] [place] [phone] Exposure to SARS-associated coronavirus (Primary [...] be available within 24 to 48 hrs. [facility] Symptomatic? NO [facility] 08/09/2020 1:25 PM EST 08/09/2020 3:00 PM EST Latoya [facility] GENERAL ORDERABLES Fin al Result Performing Organization Address City/State/[facility] Co de Phone Number [facility] [address] [place] [address] [facility] [address] [place] [phone] documented in this encounter Visit Diagnoses Diagnosis Exposure to SARS-associated coronavirus- Primary documented in this encounter Care Teams Esol Teacher Relationship Specialty Start Date End Date Jamil Lindsay MD [email or web address] PCP - General 07/19/17 04/21/24 Jamil Lindsay MD [address] [place] [phone] [email or web address] PCP - General Family Medicine 04/22/24 Sol Chapman MD [address] [id number] Primary Oncologist Hematology and Oncology 04/18/23 documented as of this encounter Additional Source Comments The information contained in this document represents components of the legal health record. It is not the complete legal health record.[facility]
--- OUTSIDE RECORDS SUMMARY | 2025-07-02 10:31 | XMS_ITS | Encounter Summary ---
Author Organization [facility] Address [address] [place] [address] Phone Care Team Providers Care Orthotic Fitter Name Role Phone Jamil Lindsay MD Primary Care Provider [phone] Sol Chapman MD Unavailable [phone] Jamil Lindsay MD Primary Care Provider [phone]- [phone] Encounter Details Date Type Department Care Team (Late st Contact Info) Description 04/27/2021 Procedure [facility] [address] [place] [address] Social History Tobacco Use Types Packs/Day Years [...] on filedocumented in this encounter Care Teams Orthotic Fitter Relationship Specialty Start Date End Date Jamil Lindsay MD PCP - General 07/19/17 04/21/24 Jamil Lindsay MD [address] [place] [address], [place] [phone] [email or web address] PCP - General Family Medicine 04/22/24 Sol Chapman MD [address] [address] [email or web address] Primary Oncologist Hematology and Oncology 04/18/23 documented as of this encounter Additional Source Comments The information contained in this document represents components of the legal health record. It is not the complete legal health record.[facility]
[2025-07-02 14:43] LABS: Alanine Aminotransferase 23 U/L (0-31); Aspartate Amino Transferase 22 U/L (5-31)
== END 2025-07-02 08:44 | disposition home or self-care (01) ==
LOC: HO.HKASLDS 08:43
PROVIDERS: PCP Physician Assistant Medical; Visit Provider Internal Medicine Rheumatology
DX: G89.29 Other chronic pain (principal); M54.50 Low back pain, unspecified; M47.812 Spondylosis without myelopathy or radiculopathy, cervical region; M19.041 Primary osteoarthritis, right hand; M19.042 Primary osteoarthritis, left hand; M25.50 Pain in unspecified joint; M47.816 Spondylosis without myelopathy or radiculopathy, lumbar region; M45.A0 Non-radiographic axial spondyloarthritis of unspecified sites in spine; Z79.1 Long term (current) use of non-steroidal anti-inflammatories (NSAID); M45.9 Ankylosing spondylitis of unspecified sites in spine; Z79.899 Other long term (current) drug therapy
CPT/HCPCS: 36415; 84450; 84460; 85652; 86140